=== PATIENT | female | born 1970 | race Caucasian/White ===

== ENCOUNTER 2024-09-19 15:22 | Outpatient (REF) | payer BC, MEDICARE, SELFPAY ==
[2024-09-19 16:55] LABS: MANUAL DIFF FLAG NO
[2024-09-19 16:58] LABS: Basophils Percent Auto 0.4 % (0-2); Eosinophils Absolute Auto 0.1 X10*3/uL (0.0-0.4); Eosinophils Percent Auto 1.1 % (0-4); Hematocrit 43.4 % (37.0-47.0); Hemoglobin 13.4 g/dl (12.0-16.0); Imm Gran Abs Auto 0.07 X10*3/uL (0.00-0.03); Imm Gran Pct Auto 0.7 % (0.0-0.4); Lymphocytes Absolute Auto 2.4 X10*3/uL (1.2-4.9); Lymphocytes Percent Auto 24.3 % (20-40); Mean Corpuscular HGB Conc 30.9 g/dl (31.0-35.0); Mean Corpuscular Hemoglobin 29.1 pg (27.0-33.0); Mean Corpuscular Volume 94.1 fL (80.0-98.0); Mean Platelet Volume 11.6 fL (9.4-12.3); Monocytes Absolute Auto 0.5 X10*3/uL (0.1-1.2); Monocytes Percent Auto 4.7 % (2-11); Neutrophils Absolute Auto 6.9 x10*3/uL (2.0-8.3); Neutrophils Percent Auto 68.8 % (45-73); Platelet Count 250 X10*3/uL (160-400); Red Blood Count 4.61 X10*6/uL (4.20-5.50); Red Cell Distribution Width 14.6 % (11.0-16.0)
[2024-09-19 17:08] LABS: Estimated Average Glucose 154 mg/dL; Hemoglobin A1C 182.2909 umol/L; Total Hemoglobin (HGBA1C) 3414.0755 umol/L
[2024-09-19 17:12] LABS: Alanine Aminotransferase 17 U/L (0-31); Albumin Level 3.8 g/dL (3.5-5.0); Alkaline Phosphatase 119 U/L (39-117); Anion Gap 14 (12-20); Aspartate Amino Transferase 26 U/L (5-31); Bilirubin Total 0.2 mg/dL (0.0-1.0); Blood Urea Nitrogen 20 mg/dL (9-16); Calcium 9.2 mg/dL (8.4-10.2); Carbon Dioxide 25 mmol/L (22-29); Chloride 109 mmol/L (96-108); Estimated Glomerular Filt Rate > 60; Glucose Random 159 mg/dL (60-115); Potassium 4.9 mmol/L (3.3-5.1); Sodium 143 mmol/L (135-145); Total Protein 7.3 g/dL (6.5-8.0)
--- OUTSIDE RECORDS SUMMARY | 2024-09-19 18:11 | XMS_ITS | Data Portability ---
Author Organization [facility] Address [address] [place] [address] Assessment Encounter Date Assessment Date Assessment LastModified by Organization Details LastModified Time 12/10/2023 12/10/2023 [id number] [place] [id number] (ACCOUNT DEVELOPMENT MANAGER) MDM MODERATE MUST MEET 2 OUT OF 3 ELEMENTS: PROBLEMS, DATA OR RISK ELEMENT 1: PROBLEMS ADDRESSED 1 OR MORE CHRONIC ILLNESS WITH EXACERBATION OR 2 OR MORE STABLE CHRONIC ILLNESSES OR 1 UNDIAGNOSED NEW PROBLEM OR 1 ACUTE ILLNESS W/SYMPTOMS OR 1 ACUTE COMPLICATED INJURY ELEMENT 2: DATA MUST MEET 1 OF 3 CATEGORIES CATEGORY 1: REVIEW OF PRIOR EXTERNAL NOTES, REVIEW OF RESULTS, ORDERING OF EACH TEST, ASSESSMENT REQUIRING INDEPENDENT HISTORIAN OR CATEGORY 2: INDEPENDENT INTERPRETATION OF TESTS BY ANOTHER PHYSICIAN OR SPECIALIST OR CATEGORY 3: DISCUSSION OF MGT OR TEST INTERPRETATION W/EXTERNAL PHYSICIAN OR SPECIALIST ELEMENT 3: RISK RISK OF COMPLICATIONS AND/OR MORBIDITY OR MORTALITY OF PATIENT MANAGEMENT PROVIDER MUST THOROUGHLY DOCUMENT EACH ELEMENT THAT IS COVERED Not available 12/10/2023 15:20:57 03/15/2024 03/15/2024 [id number] [place] [id number] (ACCOUNT DEVELOPMENT MANAGER) MDM MODERATE MUST MEET 2 OUT OF 3 ELEMENTS: PROBLEMS, DATA OR RISK ELEMENT 1: PROBLEMS ADDRESSED 1 OR MORE CHRONIC ILLNESS WITH EXACERBATION OR 2 OR MORE STABLE CHRONIC ILLNESSES OR 1 UNDIAGNOSED NEW PROBLEM OR 1 ACUTE ILLNESS W/SYMPTOMS OR 1 ACUTE COMPLICATED INJURY ELEMENT 2: DATA MUST MEET 1 OF 3 CATEGORIES CATEGORY 1: REVIEW OF PRIOR EXTERNAL NOTES, REVIEW OF RESULTS, ORDERING OF EACH TEST, ASSESSMENT REQUIRING INDEPENDENT HISTORIAN OR CATEGORY 2: INDEPENDENT INTERPRETATION OF TESTS BY ANOTHER PHYSICIAN OR SPECIALIST OR CATEGORY 3: DISCUSSION OF MGT OR TEST INTERPRETATION W/EXTERNAL PHYSICIAN OR SPECIALIST ELEMENT 3: RISK RISK OF COMPLICATIONS AND/OR MORBIDITY OR MORTALITY OF PATIENT MANAGEMENT PROVIDER MUST THOROUGHLY DOCUMENT EACH ELEMENT THAT IS COVERED Not available 03/15/2024 15:14:40 06/19/2024 06/19/2024 [email or web address] Not available 05/25 15:25:47 09/19/2024 09/19/2024 Patient presente d to office today for their Medicare Annual Wellness Visit. Education was provided on healthy nutrition, including a diet rich in fruits and vegetables, minimizing simple carbohydrates, salt, and saturated fats. Encouraged regular cardiovascular exercise such as walking at least 30 minutes daily, 5 times per week. Emphasized preventive health measures and educated pt on fall prevention and community-based lifestyle interventions to help reduce health risks and promote healthy living. [email or web address] Not available 09/14/2024 19:58:18 Plan of Treatment Reminders Order Date Submit Date Provider Last Modified By Organization Details Last Modified Time Details Appointments MEDICARE ANNUAL WELLNESS 2024 03:00P M DR JACOBS Not available Not available Not available FOLLOW UP 15 [address] JACOBS Not available Not available Not available Lab CBC w/ auto diff 2024 025 [facility], [address] [place] [address], [id number], 09/19/2024 15:17:35 CMP, serum or plasma 2024 025 [facility], [address] [place] [address], [id number], 09/19/2024 15:17:35 hemoglobi n A1c, QN, blood 2024 025 [facility], [address] [place] [address], [id number], 09/19/2024 15:17:35 culture, wound - active patient, please swab the area of concern, buttock, ulcer, celluliti s 2023 024 [facility], [address] [place] [address], [id number], 10/26/2023 15:42:55 Referral None recorded. Procedures None recorded. Surgeries None recorded. Imaging MAMMO, screening , digital, bilateral 2024 025 [facility], [address] [facility], [place], [address], 09/19/2024 15:45:46 bone density 2024 025 [facility], [address] [facility], [place], [address], 09/19/2024 15:45:46 MRI, knee, w/o contrast - needs total assistanc e pt is wheel chair bound 2023 024 [facility], [address] [facility], [facility] [address], [place], [address], 12/22/2023 08:56:56 Medication Orders fluticaso ne propionat e 110 mcg/actua tion HFA aerosol inhaler 2024 025 [id number], [address] [place] [address], [id number], 06/19/2024 15:32:45 pramipexo le 1 mg tablet 2024 025 [facility] #[id number], [address] [place] [address], [id number], 06/19/2024 15:30:09 clobetaso l 0.05 % topical cream 2024 025 [facility] #[id number], [address] [place] [address], [id number], 06/19/2024 15:29:01 Silvadene 1 % topical cream 2023 024 [facility] #84784, [address] [place] [address], [id number], 10/26/2023 15:27:07 suvorexan t 10 mg tablet 2023 024 [facility] #97714, [address] [place] [address] [place], [id number], 10/26/2023 15:44:[address] 20 mg tablet 2023 024 [id number], [address], [place], [id number], 10/26/2023 15:27:04 Patient TargetsNo targets recorded. Patient Instructions Encounter Date Encounter Id Patient Instructions Last Modified By Organization Details Last Modified Time 03/15/2024 [id number] pulse oximetry* Not available 03/15/2024 15:19:18 learning about asthma Not available 03/15/2024 15:19:19 hot flashes during menopause: care instructions Not available 03/15/2024 15:19:19 type 2 diabetes: care instructions Not available 03/15/2024 15:19:18 high blood pressure: care instructions Not available 03/15/2024 15:19:18 learning about high blood pressure Not available 03/15/2024 15:19:18 06/19/2024 [id number] pulse oximetry* VANITA Not available 06/19/2024 15:43:23 learning about asthma Not available 06/19/2024 15:28:54 09/19/2024 [id number] pulse oximetry* VANITA Not available 09/19/2024 16:36:19 advance care planning: care instructions Not available 09/19/2024 15:16:18 Discussed and explained advance directives such as standard forms to the {{patient caregiv er patient and caregiver}}. Face to face discussion lasted for a duration of ___ minutes. [email or web address] Not available 09/14/2024 19:58:18 Reason for Referral None Reported. Results Created Date Observation Date Name Description Value Unit Range Abnormal Flag Note LastModifiedBy Organization Detail LastModifiedTime 03/15/2003/15/2024 pulse oxime try* Result 90 Not Available [facility] [address] [facility] [address], [place], [address], 02/23/2024 15:19:49 06/19/19 25 06/19/2024 pulse oxime try* Result 86 Not Available [facility] [address] [facility] [place], [address], 06/16/2024 08:55:58 09/20/19 25 09/19/2024 pulse oxime try* Result 96 Not Available [facility] [address] [facility] [place], [address], 09/14/2024 20:01:22 Result Notes None recorded. Problems Name Problem SNOMED Code Status Onset Date Resolution Date Notes Provider Name and Address Organization Details Recorded Time Environm ental allergy 307010249 Active 2017 Not Available [facility] 3 22:18:52 Type 2 diabetes mellitus 21455518 Active 2017 Not Available [facility] 3 22:18:52 Low back pain 837750569 Active 2017 Not Available [facility] 3 22:18:52 History of bypass of stomach 254886912 Completed 201707/13/20182002 Merna Gonzalez NP, [address] [place], [address], [facility] 9 08:32:02 History of total hysterec norbert with bilatera l salpingo -oophore ctomy 155375796 Completed 201707/13/20182010 Merna Gonzalez NP, [address] [place], [address], [facility] 9 08:32:23 Bipolar disorder 74367492 Active 2017 Not Available [facility] 3 22:18:52 Iron deficien cy anemia 76975738 Active 2017 Not Available [facility] 3 22:18:53 Inflamma tion of sacroili ac joint 23364575 Active 2017 Not Available [facility] 3 22:18:52 Irritabl e bowel syndrome 77568618 Active 2017 Not Available [facility] 3 22:18:51 Obstruct juan pablo sleep apnea syndrome 84217457 Active 2017 uses CPAP Not Available [facility] 3 22:18:53 History of cholecys tectomy 960764596 Completed 201707/13/2018 Merna Gonzalez NP, [address] [place], [address], [facility] 9 08:32:20 History of hernia repair 30530521229 109 Completed 201707/13/2018 Merna Gonzalez NP, [address] [place], [address], [facility] 9 08:31:56 Bladder muscle dysfunct ion - overacti ve Active 2017 Not Available [facility] 3 22:18:52 Sedative overdose 353947528 Active 2017 2014 Not Available [facility] 3 22:18:52 Eating disorder 43925202 Active 2017 Not Available [facility] 3 22:18:52 Essentia l hyperten gume 99871239 Active 2017 Not Available [facility] 3 22:18:52 Atypical pneumoni a 519368709 Active 2017 Not Available [facility] 3 22:18:52 Insomnia 633940573 Active 2018 Not Available [facility] 3 22:18:52 History of pancreat itis 98674767143 107 Active 2018 Not Available [facility] 3 22:18:53 Diabetic peripher al neuropat hy 826050793 Active 2018 Not Available [facility] 3 22:18:52 Depressi ve disorder 86601101 Active 2020 Not Available [facility] 3 22:18:52 Abscess 060687220 Active 2021 Not Available [facility] 3 22:18:52 Tinea corporis 39531952 Active 2021 Not Available [facility] 3 22:18:53 Benign paroxysm al position al vertigo 517827972 Active 2021 Not Available [facility] 3 22:18:52 Benign paroxysm al position al vertigo 553224188 Active 2021 Not Available [facility] 3 22:18:52 Anxiety 67311676 Active 2021 Not Available [facility] 3 22:18:52 Transien t cerebral ischemia 415157476 Active 2021 Not Available [facility] 3 22:18:52 Menopaus e Active 2022 Not Available [facility] 3 22:18:52 Edema of lower extremit y 017150320 Active 2022 Not Available [facility] 3 22:18:51 Postoper ative wound infectio n 85682611 Active 2022 Not Available [facility] 3 22:18:52 Peripher al neuropat hy due to type 2 diabetes mellitus 84900945911 07 Active 2022 Not Available [facility] 3 22:18:52 Obesity 770560869 Active 2022 Not Available [facility] 3 22:18:52 Neurogen ic urinary bladder 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 Active 2022 Not Available [facility] 3 22:18:52 Candidia sis of vagina 14054496 Active 2022 Not Available [facility] 3 22:18:53 Asthma 438393825 Active 2022 Not Available [facility] 3 22:18:52 Dyspnea 351072437 Active 2023 GUI LALA [address] [place], [address], [facility] 4 09:32:52 Cough 33221653 Active 2023 Jovany Jacobs DO [address] [place], [address], [facility] 4 16:59:37 Allergic asthma 541536691 Active 2023 GUI LALA [address] [place], [address], [facility] 4 15:23:32 Cellulit is of buttock 19889243 Active 2023 GUI LALA [address] [place], [address], [facility] 4 15:25:22 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 GUI LALA [address] [place], [address], [facility] 4 15:29:17 Menopaus al flushing 303817541 Active 2023 GUI LALA [address] [place], [address], [facility] 4 15:38:47 Pressure injury of buttock 298939700 Active 2023 Jovany Jacobs DO [address] [place] [address], [address], [facility] 4 13:17:05 Dizzines s 504474648 Active 2023 Jovany Jacobs DO [address] [place] [address], [address], [facility] 4 13:32:19 Instabil ity of joint of left knee 46547719867 15921 Active 2023 Jovany Jacobs DO [address] [place] [address], [address], [facility] 4 15:24:51 Menopaus al syndrome 279815589 Active 2023 Jovany Jacobs DO [address] [place] [address], [address], [facility] 4 21:35:51 Nummular eczema 85464205 Active 2024 Jovany Calderon José Antonioroz, [address] [place] [address], [address], [facility] 5 15:28:07 Broken skin 885856523 Active 2024 Jovany Jacobs, [address] [place] [address], [address], [facility] 5 15:27:35 Notes:Some problems listed i n Documents: #[id number], #[id number], #[id number] could not be added to this patient's chart. Please review these documents and add these problems to the patient's chart manually as needed. Problem Notes None recorded. Procedures Surgical History Date Name Laterality Status Provider Name and Address Organization Details Recorded Time 012 colonoscopy completed Merna Gonzalez NP, S [address] [place] [address], [address], [facility] 07/13/2018 08:27:19 Total hysterectomy completed Merna Gonzalez NP, S [address] [place] [address], [address], [facility] 07/13/2018 08:26:32 Cholecystectomy completed Merna pabon NP, S [address] [place] [address], [address], [facility] 07/13/2018 08:26:42 section completed Merna ramos NP, S [address] [place] [address], [address], [facility] 07/13/2018 08:30:05 repair of umbilical hernia completed Merna Gonzalez NP, S [address] [place] [address], [address], [facility] 07/13/2018 08:30:23 Gastric bypass for obesity completed Merna Gonzalez NP, S [address] [place] [address], [address], [facility] 07/13/2018 08:30:37 panniculectomy completed Merna patel NP, [address] [place], [address], [facility] 07/13/2018 08:30:51 abdominoplasty completed Merna patel, ACCOUNT DEVELOPMENT MANAGER, [address] [place], [address], [facility] 07/13/2018 08:31:08 Imaging Results None recorded. Procedure Notes None recorded. Medical Equipment None Reported. Allergies Allergen ID Allergen Name Allergen Category Reaction Reaction Severity Criticality Documentation Date Start Date Code Code System Note Provider Name and Address Organization Details Recorded Time 230 cyclobenz aprine hydrochlo ride medicatio n Not available Not available Not available 07/26/2017 62524 [facility] 11:[facility]47 231 adhesive tape environme nt,medica tion Not available Not available Not available 07/26/2017 80173 UNK [facility] 8 11:01:51 2528 nystatin medicatio n vomiting Not available Not available 04/12/2018 7597 RxNorm Fanta Fang [facility] 8 12:01:43 Medications Name Sig Start Date Stop Date Status Note LastModified by Organization Details LastModified Time quetiapine 25 mg tablet 10/08 completed Not Available Not Available Not Available fluoxetine 40 mg capsule Take 1 capsule every day by oral route for 90 days. 08/28 completed Not Available Not Available Not Available amoxicillin 500 mg capsule TAKE 1 CAPSULE BY MOUTH THREE TIMES A DAY 07/19 completed Not Available Not Available Not Available pramipexole 1 mg tablet TAKE 1 TABLET BY MOUTH THREE TIMES DAILY active Not Available Not Available No t Available fluconazole 100 mg tablet Take 2 tablets every day by oral route for 1 day. 01/31 completed Not Available Not Available Not Available clotrimazol e 10 mg nancy TAKE 1 TABLET(S) 5 TIMES A DAY BY ORAL ROUTE FOR 10 DAYS. 07/19 completed Not Available Not Available Not Available buspirone 5 mg tablet Take one tablet twice a day. 04/07 completed Not Available Not Available Not Available metformin 500 mg tablet TAKE 1 TABLET TWICE A DAY 07/30 completed Not Available Not Available Not Available nystatin 100,000 unit/mL oral suspension Take 5 mL 4 times a day by oral route for 14 days. 04/12 completed Not Available Not Available Not Available prednisone 10 mg tablet take 5 tabs x 2 daystake 4 tabs x 2 daystake 3 tabs x 2 daystake 2 tabs x 2 daystake 1 tab x 2 days 01/31 completed Not Available Not Available Not Available doxycycline hyclate 100 mg capsule 06/25 completed Not Available Not Available Not Available paroxetine 10 mg tablet TAKE 1 TABLET BY MOUTH EVERY DAY 2024 active Not Available Not Available Not Avai lable cefaclor 500 mg capsule 10/08 completed Not Available Not Available Not Available oxybutynin chloride ER 10 mg tablet,exte nded release 24 hr Take 2 tablets daily. 04/12 completed Not Available Not Available Not Available azithromyci n 250 mg tablet TAKE 2 TABLETS (500 MG) BY ORAL ROUTE ONCE DAILY FOR 1 DAY THEN 1 TABLET (250 MG) BY ORAL ROUTE ONCE DAILY FOR 4 DAYS 01/31 completed Not Available Not Available Not Available ibuprofen 800 mg tablet TAKE ONE TABLET BY MOUTH THREE TIMES A DAY NEEDED 03/17 completed Not Available Not Available Not Available fluconazole 150 mg tablet TAKE 1 TABLET BY MOUTH NOW. MAY REPEAT IN 72 HOURS IF NEEDED active Not Available Not Available No t Available ondansetron HCl 8 mg tablet TAKE 1 TABLET BY MOUTH TWICE DAILY active Not Available Not Available No t Available fluconazole 200 mg tablet 10/08 completed Not Available Not Available Not Available clonazepam 0.5 mg tablet TAKE 2 TABLETS BY MOUTH THREE TIMES DAILY NEEDED FOR ANXIETY 03/29 completed Not Available Not Available Not Available clonazepam 1 mg tablet TAKE 1 TABLET BY MOUTH THREE TIMES DAILY NEEDED active Not Available Not Available No t Available clobetasol 0.05 % topical cream APPLY THIN LAYER TOPICALLY TO THE AFFECTED AREA TWICE DAILY active Not Available Not Available No t Available meclizine 12.5 mg tablet TAKE ONE TABLET BY MOUTH THREE TIMES A DAY NEEDED 03/17 completed Not Available Not Available Not Available metronidazo le 500 mg tablet Take 1 tablet twice a day by oral route with meals for 7 days. 07/19 completed Not Available Not Available Not Available estradiol 0.05 mg/24 hr semiweekly transdermal patch Apply 1 patch twice a week by transderm al route for 30 days. 2024 active Not Available Not Available Not Avai lable doxepin 10 mg capsule TAKE 1- 2 CAPSULES BY MOUTH EVERY NIGHT AT BEDTIME 10/25 completed Not Available Not Available Not Available valacyclovi r 500 mg tablet Take 1 tablet twice a day by oral route for 5 days. 11/07 completed Not Available Not Available Not Available ciprofloxac in 500 mg tablet 07/30 completed Not Available Not Available Not Available doxycycline monohydrate 100 mg tablet TAKE 1 TABLET BY MOUTH EVERY 12 HOURS FOR 3 DAYS 10/25 completed Not Available Not Available Not Available lithium carbonate ER 450 mg tablet,exte nded release TAKE 1 TABLET BY MOUTH TWICE A DAY 02/18 completed Not Available Not Available Not Available baclofen 20 mg tablet TAKE 1 TABLET BY MOUTH THREE TIMES DAILY active Not Available Not Available No t Available pramipexole 0.5 mg tablet TAKE 1 TABLET BY MOUTH THREE TIMES DAILY 06/19 completed Not Available Not Available Not Available lorazepam 0.5 mg tablet Take one tablet four times a day. 02/16 completed Not Available Not Available Not Available trazodone 100 mg tablet 10/08 completed Not Available Not Available Not Available meclizine 25 mg tablet TAKE 1 TABLET BY MOUTH THREE TIMES DAILY FOR 10 DAYS NEEDED active Not Available Not Available No t Available baclofen 10 mg tablet TAKE ONE TABLET BY MOUTH THREE TIMES A DAY 03/15 completed Not Available Not Available Not Available cephalexin 500 mg capsule TAKE 1 CAPSULE BY MOUTH EVERY 6 HOURS FOR 3 DAYS 12/09 completed Not Available Not Available Not Available metformin 1,000 mg tablet TAKE 1 TABLET BY MOUTH TWICE DAILY active Not Available Not Available No t Available buspirone 10 mg tablet Take one tablet twice a day. 10/08 completed Not Available Not Available Not Available zafirlukast 20 mg tablet TAKE 1 TABLET BY MOUTH TWICE DAILY active Not Available Not Available No t Available gabapentin 300 mg capsule TAKE 3 CAPSULES BY MOUTH THREE TIMES DAILY active Not Available Not Available No t Available montelukast 10 mg tablet TAKE 1 TABLET DAILY 08/28 completed Not Available Not Available Not Available codeine 10 mg-guaifene sin 100 mg/5 mL oral liquid TAKE 10 ML BY MOUTH FOUR TIMES DAILY FOR 7 DAYS NEEDED 12/07 completed Not Available Not Available Not Available hydrochloro thiazide 25 mg tablet TAKE 1 TABLET BY MOUTH EVERY DAY 02/18 completed Not Available Not Available Not Available furosemide 20 mg tablet TAKE ONE TABLET BY MOUTH EVERY DAY 08/28 completed Not Available Not Available Not Available mirtazapine 15 mg tablet Take 1 tablet every day by oral route for 30 days. 04/07 completed Not Available Not Available Not Available nystatin 100,000 unit/gram topical powder APPLY TO AFFECTED AREA(S) TOPICALLY TWO TIMES A DAY DIRECTED 08/28 completed Not Available Not Available Not Available lorazepam 1 mg tablet 1 tablet 3 times a day 07/30 completed Not Available Not Available Not Available diazepam 10 mg tablet Take 1 tablet twice a day by oral route as needed for 30 days. 01/02 completed Not Available Not Available Not Available estradiol 0.01% (0.1 mg/gram) vaginal cream 04/07 completed Not Available Not Available Not Available levofloxaci n 750 mg tablet 07/30 completed Not Available Not Available Not Available albuterol sulfate HFA 90 mcg/actuati on aerosol inhaler INHALE 1 PUFFS BY MOUTH EVERY 4- 6 HOURS NEEDED active Not Available Not Available No t Available SSD 1 % topical cream APPLY TOPICALLY A 1/16 INCH(1.5 MM) THICK LAYER TO ENTIRE AFFECTED AREA BY TOPICAL ROUTE2 TIMES PER DAY active Not Available Not Available No t Available piroxicam 20 mg capsule 10/08 completed Not Available Not Available Not Available fluoxetine 20 mg capsule TAKE ONE CAPSULE BY MOUTH EVERY DAY IN THE MORNING with 40mg capsule 08/28 completed Not Available Not Available Not Available doxycycline hyclate 100 mg tablet TAKE 1 TABLET BY MOUTH TWICE A DAY 06/25 completed Not Available Not Available Not Available ipratropium bromide 21 mcg (0.03 %) nasal spray 02/18 completed Not Available Not Available Not Available fluticasone propionate 110 mcg/actuati on HFA aerosol inhaler Inhale 1 puff twice a day by inhalatio n route for 30 days. 2024 active Not Available Not Available Not Avai lable spironolact one 50 mg tablet TAKE 1 TABLET BY MOUTH EVERY DAY active Not Available Not Available No t Available oxycodone 5 mg tablet TAKE 2 TABLETS BY MOUTH EVERY 4 HOURS NEEDED FOR PAIN 03/15 completed Not Available Not Available Not Available aripiprazol e 30 mg tablet TAKE 1 TABLET BY MOUTH EVERY DAY 2024 active Not Available Not Available Not Avai lable duloxetine 30 mg capsule,del ayed release TAKE 1 CAPSULE BY MOUTH EVERY DAY active Not Available Not Available No t Available BD Ultra-Fine Mini Pen Needle 31 gauge x 3/16 DIRECTED ONCE DAILY active Not Available Not Available No t Available Vesicare 10 mg tablet TAKE 1 TABLET BY MOUTH EVERY DAY 04/07 completed Not Available Not Available Not Available pregabalin 75 mg capsule 07/30 completed Not Available Not Available Not Available pregabalin 100 mg capsule Take by oral route. 03/17 completed Not Available Not Available Not Available chlorhexidi ne gluconate 0.12 % mouthwash USE 15 CC SWISH AND SPIT TWICE DAILY START IN 24 HRS 07/19 completed Not Available Not Available Not Available Vitamin C active Not Available Not Myra ilable Not Available folic acid take 1 tablet by mouth once a day 02/18 completed Not Available Not Available Not Available hydrocodone 7.5 mg-acetamin ophen 300 mg tablet 3 times per day 02/18 completed Not Available Not Available Not Available BD Ultra-Fine Short Pen Needle 31 gauge x 5/16 active Not Available Not Available Not Available Januvia 100 mg tablet 09/09 completed Not Available Not Available Not Available Lantus Solostar U-100 Insulin 100 unit/mL (3 mL) subcutaneou s pen active Not Available Not Available Not Available oxycodone 10 mg tablet TAKE 1 TABLET BY MOUTH THREE TIMES DAILY FOR 7 DAYS NEEDED FOR PAIN 03/15 completed Not Available Not Available Not Available OneTouch Delica Lancets 33 gauge USE TO TEST BLOOD SUGAR ONCE DAILY active Not Available Not Available No t Available Tradjenta 5 mg tablet TAKE 1 TABLET BY MOUTH EVERY DAY active Not Available Not Available No t Available OneTouch Verio test strips USE TO TEST ONCE A DAY active Not Available Not Available No t Available Eliquis 5 mg tablet TAKE 1 TABLET BY MOUTH TWICE DAILY 2024 active Not Available Not Available Not Avai lable Farxiga 10 mg tablet active Not Available Not Available No t Available Farxiga 5 mg tablet active Not Available Not Available No t Available Belsomra 10 mg tablet TAKE 1 TABLET BY MOUTH EVERY DAY AT BEDTIME active Not Available Not Available No t Available Toujeo SoloStar U-300 Insulin 300 unit/mL (1.5 mL) subcutaneou s pen 30 units sq in qhs 03/17 completed Not Available Not Available Not Available Tresiba FlexTouch U-200 insulin 200 unit/mL (3 mL) subcutaneou s pen ADMINISTE R 104 UNITS UNDER THE SKIN DAILY active Not Available Not Available No t Available Fiasp FlexTouch U-100 Insulin 100 unit/mL (3 mL) subcutaneou s pen active Not Available Not Available Not Available Qvar RediHaler 80 mcg/actuati on HFA breath activated aerosol INHALE 2 PUFFS BY MOUTH TWICE DAILY active Not Available Not Available No t Available Ozempic 0.25 mg or 0.5 mg (2 mg/1.5 mL) subcutaneou s pen injector 10/02 completed Not Available Not Available Not Available Eliquis DVT-PE Treatment 30-Day Starter 5 mg (74 tablets) in dose pack 03/26 completed Not Available Not Available Not Available Tylenol 325 mg capsule Take by oral route. active Not Available Not Available No t Available OneTouch Verio Reflect Meter TEST ONCE A DAY E11.65 active Not Available Not Available No t Available Lyllana 0.0375 mg/24 hr transdermal patch APPLY 1 PATCH TOPICALLY TO THE SKIN 2 TIMES A WEEK active Not Available Not Available No t Available Mounjaro 2.5 mg/0.5 mL subcutaneou s pen injector Inject 0.5 mL every week by subcutane ous route for 30 days. 2022 active Not Available Not Available Not Avai labcal Dexcom G7 Sensor device USE DIRECTED TO MONITOR BLOOD SUGAR active Not Available Not Available No t Available Veozah 45 mg tablet TAKE 1 TABLET BY MOUTH EVERY DAY active Not Available Not Available No t Available Vitals Date Recorded Heart rate Oxygen saturation Oxygen saturation in Arterial blood by Pulse oximetry Systolic blood pressure Diastolic blood pressure Provider Name and Address Organization Details Last Updated DateTime 4 113 /min 99 % 99 % 130 mm[Hg] 72 mm[Hg] Angela Talbert [facility] 4 15:06:41 Date Recorded Heart rate Oxygen saturation Oxygen saturation in Arterial blood by Pulse oximetry Systolic blood pressure Diastolic blood pressure Provider Name and Address Organization Details Last Updated DateTime 4 113 /min 91 % 91 % 132 mm[Hg] 80 mm[Hg] Bhakti Baptiste [facility] 4 15:06:28 Date Recorded Body height Body mass index (BMI) Body weight Heart rate Oxygen saturation Oxygen saturation in Arterial blood by Pulse oximetry Systolic blood pressure Diastolic blood pressure Provider Name and Address Organization Details Last Updated DateTime 4 152.4 cm 48.8 kg/m2 828907. 09 g 116 /min 90 % 90 % 122 mm[Hg] 76 mm[Hg] Clifford Morales [facility] 4 15:06:26 Date Recorded Body height Heart rate Oxygen saturation Oxygen saturation in Arterial blood by Pulse oximetry Systolic blood pressure Diastolic blood pressure Provider Name and Address Organization Details Last Updated DateTime 5 152.4 cm 113 /min 86 % 86 % 100 mm[Hg] 64 mm[Hg] Angela Talbert [facility] 5 15:07:42 Date Recorded Body height Systolic blood pressure Diastolic blood pressure Provider Name and Address Organization Details Last Updated DateTime 09/19/2024 152.4 cm 120 mm[Hg] 68 mm[Hg] Angela Talbert [facility] 09/19/2024 15:01:51 Social History Question Answer Notes LastModified by Organizat ion Details LastModified Time Tobacco Smoking Status Former Smoker Angela beckman [facility] 12/04/2022 13:59:48 What Was The Date Of Your Most Recent Tobacco Screening? 09/19/2024 [email or web address] Information not available 09/19/2024 How Much Tobacco Do You Smoke? 1 PPD [email or web address] Information not available 07/19/2020 Do You Or Have You Ever Used Any Other Forms Of Tobacco Or Nicotine? No [email or web address] Information not available 10/26/2023 Sex: Unknown Functional Status None recorded. Mental Status None recorded. Family History Relationship Description Onset Age of this Age Resolved Age Notes LastModified by Organization Details LastModified Time Mother Coronary arterioscler osis thn, NIDDM sol Not available 07/13/2018 08:29:14 Medical History No medical history recorded. Gynecological HistoryNo gynecological history recorded. Obstetrics History GPAL:G 0 P 0 0 0 0 Past Encounters Encounter ID Performer Location Encounter Start Date Encounter Closed Date Diagnosis/Indication Diagnosis SNOMED-CT Code Diagnosis ICD10 Code Diagnosis Note [id number] Jovany Jacobs [facility] Internal Medicine [address] [facility] [address], [place] [address] 10/08/2017 16:10:25 10/11/2017 08:40:35 Essential hypertension 04063774 I10 bp was stable warned of untreated sleep apnea Type 2 za betes mellitus 52089886 E11.9 hasnt been getting the a1c test Obstructiv e sleep apnea syndrome 61023069 G47.33 not wearing cpap warned of sleep deprivatio n and medical conditons is falling asleep in car told her should not be driving if she is [id number] August Igor [facility] Internal Medicine [address] [facility] [address],[place] [address] 11/15/2017 14:42:46 11/15/2017 16:10:49 Fever 607617339 R50.9 possibly pneumonia, but with numerous sx, not suggestive of pna Fatigue 77889076 R53.83 acute Asthma 892870612 J45.90 9 feels worse Chest pain 03482466 R07. 9 ekg reassuring Pneumonia 722265151 J18. 9 nonspecifi c findings, treat empiricall y until more informatio n from labs/cxr pt reports she has taken zpack in past without issue O2 sat is reassuring [id number] Jovany Jacobs [facility] Internal Medicine [address] [facility] [address],[place] [address] 01/21/2018 15:50:02 01/21/2018 17:01:06 Type 2 diabetes mellitus 08978480 E11.9 hasnt been getting the a1c test Essential hypertension 63594299 I10 bp was stable warned of untreated sleep apnea Diabetes mellitus 370770 09 E11.9 [id number] [facility] [place] Internal Medicine [address] [place] [address],[place] [address] 01/31/2018 16:13:18 02/01/2018 08:02:06 Sensory neuropathy 05149257 G60.8 have recommende d she take ibuprofen 800 mg 2-3 times per day and if no improvemen t to please call her spinal specialist dr. agustin in 2-3 days. have advised her not to wait too long to call as neuropathy can be permanent if allowed to persist unaddresse d. given the sudden onset of sx it is unlikely solely due to diabetes and rather a peripheral nerve irritation or possibly a spinal disc herniation , though in absence of any injury it is unclear the mechanism that would have triggered this. Type 2 za betes mellitus 72001441 E11.65 neuropathy unlikely solely related to dm. labs were ordered by MB, reassured pt that they will be evaluated once recieved, though they were not ready as of today Chronic low back pain 27 1717037 M54.5 this seems the most likely explanatio n for abrupt onset of foot neuropathy , she is aware to contact her spinal specialist for evaluation of this if not improved in 2-3 days [id number] [facility] [place] Internal Medicine [address] [place] [address],[place] [address] 02/16/2018 15:47:18 02/16/2018 16:33:17 Candidiasis of mouth 50584775 B37.0 Asthma 912756963 J45.90 9 has been quiet on steroid based inhaler [id number] [facility] [place] Internal Medicine [address] [facility],[place] [address] 04/12/2018 11:38:35 04/12/2018 14:14:14 Asthma 562322110 J45.909 has been quiet on steroid based inhaler Sensory neuropathy 63576 005 G60.8 continues to have sx. suggest discussing with dr. agustin, if he doesn't believe its related to the back we will order an emg/nct to assess the source of her neuropathy . Type 2 za betes mellitus 10828592 E11.65 could be contributo ry recommend more strict diet and blood sugar monitoring daily Chronic low back pain 27 4993089 M54.5 this seems the most likely explanatio n for abrupt onset of foot neuropathy , she is aware to contact her spinal specialist for evaluation of this if not improved in 2-3 days Candidiasis of mouth 797 01033 B37.0 unable to tolerate nystatin will try troches diflucan has several interactio ns, will try to avoid for now [id number] August CLYDE Costa [facility] Internal Medicine [address] [facility],[place] [address] 05/09/2018 13:22:12 05/09/2018 14:17:29 Sensory neuropathy 02558878 G60.8 continues to have sx, discussed with her spinal specialist who has yet to address it Weakness of hand 3989464 06 M62.81 b/l hands. intermitte nt, with intermitte nt shakes/get mors need to see neuro ? parkinson' s Ataxia 78491123 R27.0 weakness of legs, legs give out intermitte ntly ? disc related, unlikely cauda equina given lack of saddle anesthesia , radiculopa thy and intermitte nt nature again will consult with neuro [id number] Jovany Jacobs, [facility] Internal Medicine [address] [facility],[place] [address] 06/01/2018 15:22:06 06/01/2018 19:20:09 Essential hypertension 26136008 I10 bp was stable warned of untreated sleep apnea Inflammati on of sacroiliac joint 98504656 M46.1 still very uncomforta ble gets epidurals inj and not too helpful Type 2 za betes mellitus 22711204 E11.9 a1c 7.2 and is doing well has lost almost 20lbs Insomnia 537230919 G47.0 0 trazodone is not helping will need to figure out what we can use which does not interfere with lithium Bipolar disorder 4212103 4 F31.9 reviewed lithium levels [id number] Merna Gonzalez NP, S [facility] Internal Medicine [address] [facility],[place] [address] 07/13/2018 09:12:06 07/13/2018 10:33:07 Type 2 diabetes mellitus 13853994 E11.65 Atrophic vaginitis 27132 000 N95.2 Vaginal ulcer 01736580 N 76.5 Candidiasis of mouth 797 77161 B37.0 Essential hypertension 94158532 I10 stable [id number] Merna Gonzalez NP, S [facility] Internal Medicine [address] [facility] [address],[place] [address] 08/16/2018 11:27:29 08/16/2018 12:23:33 Essential hypertension 64294372 I10 stable Type 2 za betes mellitus 43472824 E11.65 check home BS's at least daily Pancreatitis 78655481 K8 5.90 resolved [id number] Jovany Jacobs DO [facility] Internal Medicine [address] [facility],[place] [address] 09/13/2018 13:22:21 09/13/2018 14:17:46 Essential hypertension 00003299 I10 bp was stable warned of untreated sleep apnea Type 2 za betes mellitus 25034173 E11.9 has not gotten any lab for this visit will order lab now History of pancreatitis 4842764308 9107 Z87.19 had bout of mild acute pancreatit is not a drinker no gb subacute onset unknown etiology [id number] Jovany Jacobs DO [facility] Internal Medicine [address] [facility],[place] [address] 11/07/2018 10:28:10 11/07/2018 11:45:31 Type 2 diabetes mellitus 76748540 E11.9 a1c is reported to be elevated at 8 despite the wgt loss Essential hypertension 18995117 I10 bp was stable warned of untreated sleep apnea Iron defic iency anemia 94783119 D50.9 believe this is all unresolved as she still behaves like iron def ( iice cubes , restless legs ) will need eval by dr castano and will need new set of lab for her eval Restless legs 49519819 G 25.81 [id number] Jovany Jacobs DO [facility] Internal Medicine [address] [facility] [address], [place] [address] 12/30/2018 15:16:45 12/30/2018 16:16:23 Type 2 diabetes mellitus 90385890 E11.9 a1c is 7.6 and is fairly stable Essential hypertension 00161317 I10 bp was stable warned of untreated sleep apnea Iron defic iency anemia 35772975 D50.9 believe this is all unresolved as she still behaves like iron def ( iice cubes , restless legs ) will need eval by dr castano and will need new set of lab for her eval will need continued iv iron infusions Obstructiv e sleep apnea syndrome 05276537 G47.33 not wearing cpap warned of sleep deprivatio n and medical conditons is falling asleep in car told her should not be driving if she is [id number] Jovany Jacobs [facility] Internal Medicine [address] [facility] [address], [place] [address] 02/20/2019 10:56:16 02/20/2019 14:22:41 Type 2 diabetes mellitus 19213210 E11.9 a1c was 7.6 and is fairly stable but will chk today and find out Essential hypertension 00564452 I10 bp was stable warned of untreated sleep apnea Diabetic p eripheral neuropathy 103227977 E11.40 will cont to tell her to stop drinking sugar drinks and that it only makes it worse Edema of lower leg 45760 7004 R60.0 worrisome as she has had DVT in the past will order doppler jane [id number] Jovany Jacobs [facility] Internal Medicine [address] [facility] [address],[place] [employer] [address] 04/07/2019 15:52:23 04/07/2019 16:40:27 Type 2 diabetes mellitus 38115299 E11.9 a1c was 7.6 and is fairly stable but will chk today and find out Essential hypertension 40061147 I10 bp was stable warned of untreated sleep apnea Diabetic p eripheral neuropathy 554025705 E11.40 will cont to tell her to stop drinking sugar drinks and that it only makes it worse luckily she has a a1c of 7.3 History of pancreatitis 2012178282 9107 Z87.19 had bout of mild acute pancreatit is recently with pain in her mid epigast region this slowly went away stopped eating and drank fluids not a drinker no gb subacute onset unknown etiology [id number] August CLYDE Costa [facility] Internal Medicine [address] [facility] [address],[place] [address] 05/08/2019 11:49:45 05/08/2019 12:15:12 Colitis 64529054 K52.9 needs to have gi f/u and possible colonoscop y/upper endoscopy advised to fu or go to ER if sx worsen Diverticul itis of colon 086761190 K57.32 was treated with abx 3 weeks ago for this. one of the abx caused vomiting, but she is tolerating her abx regimen at this time Type 2 za betes mellitus 07765809 E11.65 [id number] Jovany Jacobs [facility] Internal Medicine [address] [facility], [place] [address] 07/31/2019 15:38:46 07/31/2019 16:17:55 Type 2 diabetes mellitus 42584949 E11.9 a1c is 7.8 and was 7.6 and is fairly stable but will need to be more careful Essential hypertension 67998543 I10 bp was stable warned of untreated sleep apnea Diabetic p eripheral neuropathy 791349633 E11.40 cont to tell her to stop drinking sugar drinks !!!!!!!!!! ! still luckily she has a a1c of 7.8 Obstructiv e sleep apnea syndrome 04011918 G47.33 not wearing cpap and GAIN WE warned of sleep deprivatio n and medical conditons is falling asleep in car told her should not be driving. Bipolar disorder 1933283 4 F31.9 reviewed lithium levels [id number] Jovany Jacobs [facility] Internal Medicine [address] [facility],[place] [address] 09/15/2019 13:33:38 09/15/2019 15:27:00 Exposure to communicable disease 652016198 Z20.9 metronidaz ole 500 [id number] Jovany Jacobs [facility] Internal Medicine [address] [facility], [place] [address] 10/31/2019 15:50:20 10/31/2019 16:45:52 Type 2 diabetes mellitus 11334759 E11.9 a1c is pending last test was 7.8 and was 7.6 and is fairly stable but will need to be more careful Iron defic iency anemia 88158837 D50.9 believe this is all unresolved as she still behaves like iron def ( iice cubes , restless legs ) will need eval by dr casatno and will need new set of lab for her eval will need continued iv iron infusions Diabetic p eripheral neuropathy 967197798 E11.40 cont to tell her to stop drinking sugar drinks !!!!!!!!!! ! still luckily she has a a1c of 7.8 keep walking [id number] GUI LALA [facility] Internal Medicine [address] [facility] [address],[place] [address] 02/14/2020 15:26:09 02/14/2020 18:08:30 [id number] GUI LALA [facility] Internal Medicine [address] [facility] [address],[place] [address] 02/14/2020 15:36:52 02/14/2020 16:14:43 Type 2 diabetes mellitus 36052843 E11.9 A1c is stable will hold increasing metformin Essential hypertension 37345135 I10 BP elevated patient is in pain will monitor may need to adjust medication [id number] Jovany Jacobs DO [facility] Internal Medicine [address] [facility] [address],[place] [address] 07/19/2020 15:55:20 07/19/2020 16:43:43 Essential hypertension 72790563 I10 bp was stable warned of untreated sleep apnea Type 2 za betes mellitus 91113909 E11.9 aa1c is elevated to 9 from 7 state s is 10 lbs more Bipolar disorder 8421392 4 F31.9 reviewed lithium levels [id number] Jovany Jacobs DO [facility] Internal Medicine [address] [facility] [address],[place] [address] 02/18/2021 08:12:00 02/18/2021 10:55:46 Diabetic peripheral neuropathy 133990322 E11.40 still very severe and having a great deal of pain in her feet unable to walk at thispoint because of itwe will increase her gabapentin to 600mg tid total Inflammati on of sacroiliac joint 87441781 M46.1 still very uncomforta ble gets epidurals inj and not too helpful Edema of l ower extremity 259988249 R60.0 has 20 mg furosemide will use the med daily for a week to see if that helps Nausea 801141244 R11.0 [id number] Jovany Jacobs DO [facility] Medicine [address] [facility],[place] [address] 03/26/2021 08:14:19 03/26/2021 15:51:03 Deep venous thrombosis of lower extremity 896407383 I82.409 we will cont the eliquis for total 6 monthspt is now back doing her PT exercises and formal visits Fracture o f shaft of femur 50000376 S72.302E she will cont with the PT and currently will be temi g to the surgeon at the end of aprilof note is that the patient would absolutely benefit from a hospital bed preferably with trapeze as she is not progressin g at this time and she needs to have this now .. Urinary incontinence 165 556210 R32 [id number] Jovany Jacobs DO [facility] Internal Medicine [address] [facility],[place] [address] 06/25/2021 08:31:43 06/30/2021 09:41:52 Diabetic peripheral neuropathy 149881891 E11.40 still very severe and having a great deal of pain in her feet unable to walk at this point because of itwe will increase her gabapentin to 600mg tid total Inflammati on of sacroiliac joint 01075039 M46.1 still very uncomforta ble gets epidurals inj and not too helpful Deep venou s thrombosis of lower extremity 896653990 I82.409 we will cont the eliquis as she is not walking Bipolar disorder 5856433 4 F31.9 she has been stable Type 2 za betes mellitus 54554718 E11.9 she has a need to get her lab done Essential hypertension 30958276 I10 bp was stable warned of untreated sleep apnea 70566 GUI LALA [facility] Internal Medicine [address] [facility],[place] [address] 10/10/2021 09:51:33 10/14/2021 12:07:19 Abscess 756137593 L02.91 resolved Type 2 za betes mellitus 97353714 E11.9 discussed when and how much insulin to takewill let MB know [id number] DO [facility] [address] [facility] [address],[place] [address] 11/11/2021 08:23:52 11/14/2021 08:44:35 Type 2 diabetes mellitus 83961332 E11.9 she has a need to get her lab done Essential hypertension 42761909 I10 bp was stable warned her again of untreated sleep apnea last bp was around 118 / 70 Tinea corporis 61117834 B35.4 13877 GUI LALA [facility] Internal Medicine [address] [facility] [address],[place] [address] 11/25/2021 09:17:00 11/25/2021 10:48:52 Benign paroxysmal positional vertigo 247183875 H81.12 will fu with update on wednesday 10026 GUI LALA [facility] Internal Medicine [address] [facility] [address],[place] [address] 01/02/2022 10:42:42 01/05/2022 11:09:44 Anxiety 05146555 F41.1 will f/u with medication adjustment will increase prozac to 40 mg and change Klonapin to 1 mg TID Transient cerebral ischemia 192362928 G45.8 will set up with an open MRIwill determine if Somers has a sharon lift 13396 GUI LALA [facility] Internal Medicine [address] [facility] [address],[place] [address] 06/05/2022 11:22:55 06/09/2022 08:49:37 Menopause 699461419 N95.1 will start paxil for the menopause Diabetic p eripheral neuropathy 389759051 E11.41 will change out to lyrica from gabapentin Type 2 za betes mellitus 45176924 E11.9 discussed when and how much insulin to takewill let MB know Anxiety 52462555 F41.1 needs refill Edema of l ower extremity 760034026 R60.0 needs refill [id number] Jovany Jacobs DO [facility] Internal Medicine [address] [facility] [address],[place] [address] 06/15/2022 14:20:54 06/15/2022 15:34:02 Transient cerebral ischemia 780496171 G45.8 seems to be stable Type 2 za betes mellitus 90673029 E11.42 she has a need to get her lab done Essential hypertension 37492603 I10 bp was stable warned her again of untreated sleep apnea last bp was around 118 / 70 Inflammati on of sacroiliac joint 67360940 M46.1 still very uncomforta ble gets epidurals inj and not too helpful Bipolar disorder 6273074 4 F31.9 she has been stable Deep venou s thrombosis of lower extremity 024358039 I82.409 we will cont the eliquis as she is not walking Postoperat juan pablo wound infection 17998846 T81.41XS area has healed and is no longer drainingwi ll be cont to have her monitor and [place] [id number] Jovany Jacobs, [facility] Internal Medicine [address] [facility],[place] [address] 08/28/2022 13:58:20 08/28/2022 15:22:03 Type 2 diabetes mellitus 91792319 E11.42 lab [id number] is still very high at 10 will try to get her on ozempic and send her to dr Jeffers Edema of l ower extremity 806831742 R60.0 has 20 mg furosemide and this has not helped so stopped Peripheral neuropathy due to type 2 diabetes mellitus 4158839574 107 E11.42 about the same [id number] Jovany Jacobs [facility] Internal Medicine [address] [facility],[place] [address] 12/04/2022 13:51:36 12/04/2022 14:47:49 Peripheral neuropathy due to type 2 diabetes mellitus 6795635118 107 E11.42 about the same Type 2 za betes mellitus 19664288 E11.42 lab not done not sure what sugars are [id number] is still very high at 10 will try to get her on ozempic and send her to dr Jeffers [id number] Jovany Jacobs [facility] Internal Medicine [address] [facility],[place] [address] 03/17/2023 14:38:31 03/17/2023 16:33:23 Depressive disorder 60293446 F32.A her e for rechk and is about the same Anxiety [id number] F41.1 will f/u with medication adjustment will increase prozac to 40 mg and change Klonapin to 1 mg TID Asthma 526368633 J45.90 9 seems stable Bipolar disorder 5375086 4 F31.9 she has been stable aripiprazo le Essential hypertension 78722375 I10 bp was stable warned her again of untreated sleep apnea last bp was around 118 / 70 Type 2 za betes mellitus 75014047 E11.42 again , lab not done not sure what sugars are oavpyhv8p was still very high at 10 will try to get her on mounjaro if ok with dr jeffers [id number] Jovany Jacobs DO [facility] Internal Medicine [address] [facility] [address] [address] 07/14/2023 08:53:38 07/16/2023 08:59:16 Type 2 diabetes mellitus 02002256 E11.40 again , lab not done not sure what sugars are ubzqby8s was doing better at 7.8 Inflammati on of sacroiliac joint 33279599 M46.1 still very uncomforta ble gets epidurals inj and not too helpful Bipolar disorder 8806517 4 F31.9 she has been stable aripiprazo le Deep venou s thrombosis of lower extremity 801804339 I82.409 we will cont the eliquis as she is not walking Essential hypertension 78763975 I10 bp was stable warned her again of untreated sleep apnea last bp was around 118 / 70 Asthma 182488201 J45.90 9 seems stable Neurogenic urinary bladder 334320614 N31.9 she still has an issue with bladder has no warning and she is having incontinen ce [id number] GUI LALA [facility] Internal Medicine [address] [facility] [address] [address] 10/26/2023 14:52:41 10/26/2023 16:41:22 Allergic asthma 134773494 J45.20 will set up with alt to the montelukas t for better allergy asthma control for her cough Cellulitis of buttock 44 251832 L03.317 will set up with alternrufusv kelly for Ruptured a bdominal aortic aneurysm 22567985 I71.33 the patient will be following up with the surgeon on Wednesday; will see Dr. Morataya Menopausal flushing 1983 78880 N95.1 agreed to f/u ruth as an alternativ e to therapy for the paxilgiven free sample in office Insomnia 368543944 G47.0 9 will set up for a PA [id number] Jovany Jacobs [facility] Internal Medicine [address] [facility] [address] [address] 12/10/2023 14:47:34 12/10/2023 15:39:44 Depression screening 338074874 Z13.31 SCREENING NEGATIVE Essential hypertension 81805203 I10 bp was stable warned her again of untreated sleep apnea last bp was around 118 / 70 Type 2 za betes mellitus 54044356 E11.40 again , lab not done not sure what sugars are doing will order a1ca1c was doing better at 7.8 Instabilit y of joint of left knee [id number] 135482 M25.362 severe pain and joint instabilit y [id number] Jovany Jacobs [facility] Internal Medicine [address] [facility] [address] 7 03/15/2024 14:49:29 03/15/2024 15:57:02 Asthma 367257006 J45.909 seems stable Type 2 za betes mellitus 66571939 E11.40 a1c is 10.6 will be seeing the endo diabetes spec next weekneeds a sliding scale and needs to have the dexcom Peripheral neuropathy due to type 2 diabetes mellitus 0369771915 107 E11.42 about the same Menopausal flushing 1983 83518 N95.1 Essential hypertension 48118696 I10 bp was stable warned her again of untreated sleep apnea last bp was around 118 / 70 [id number] Jovany Jacobs [facility] Internal Medicine [address] [facility] [address] [address] 06/19/2024 14:56:43 06/19/2024 15:37:21 Allergic asthma 641289942 J45.20 as below Asthma 537613845 J45.90 9 seems stablebit still smokes Nummular eczema 39715920 L30.0 Diabetic p eripheral neuropathy 426433418 E11.41 [id number] Jovany Jacobs DO [facility] Internal Medicine [address] [facility] [address],[place] [address] 09/19/2024 14:47:30 09/19/2024 15:45:46 Screening for cardiovascular system disease 001962083 Z13.6 will need further lab Screening for malignant neoplasm of colon 071813716 Z12.11 currently not abole to do colonoscop y Screening for osteoporosis 387681413 Z13.820 Screening mammography 24 312124 Z12.31 Asthma 296274761 J45.90 9 seems stablebut still smokes Essential hypertension 90374034 I10 bp was stable warned her again of untreated sleep apnea last bp was around 118 / 70 Type 2 za betes mellitus 23839723 E11.40 a1c is 10.6 will be seeing the endo diabetes spec next weekneeds a sliding scale and needs to have the dexcom General ex amination of patient 100715118 Z00.01 still trying to walk able to stand better now unwilling to give upwill need lab Broken skin 593872369 R2 3.8 Health Concerns Section Related Observation LastModified by Organization Detai ls LastModified Time None Recorded Concern Status LastModified by Organization Details LastModified Time None Recorded Advance Directives Directive None Recorded Payers Encounter Date Sequence Insurance Name Policy Number Policy [place] Covered Member ID [place] Member ID Guarantor Name 10/26/2023 1 [place] [id number] [place] A Hasmukh [id number] [place] Has[place]kh 10/26/2023 2 [place] [employer] H[place]ukh [id number] [place] 12/10/2023 1 [place] [id number] [place] Has[place] [id number] [place] 12/10/2023 2 [place] Hasmukh [id number] [place] 03/15/2024 1 [place] [id number] [place] Has[place] [id number] [place] 03/15/2024 2 [place] Hasmukh [id number] [place] Harley Hasmukh 06/19/2024 1 [place] [id number] [place] Noe [id number] [place] 06/19/2024 2 [place] [facility] [place] Noe [id number] [place] Har[place] Hasmukh 09/19/2024 1 [place] [id number] [place] [id number] [place] Harley Hasmukh 09/19/2024 2 [place] [facility] [place] [id number] [place] No[place] Notes Date Note Type Note Provider Name and Address Organization Details Recorded Time 4 text/htm l hospital f/u the patient reports that she was seen emergency for a ruptured AA due to severe coughing fitthe patient incision is healing really wellthe patient still has some residual bruising from the areastill having abdominal pain, surgeon on Wednesday for a f/u the recheck the area the patient and I discussed the infection of her buttockwill send note to [facility] for swab of the areastarted after yeast infection due to abx post op will give [facility] silvadene to try and use for better treatment option until swab results come in switched out medication for insomnia given multiple failed medicationsdoxepin does not help at all added zafirlukast for her to use with the zyrtec for the allergic asthma/allergic cough given free sample of veozah for the hot flashes, safe to use non hormonal treatment since paxil isn't helping GUI LALA [address] [place] [address], [phone], [facility] 10/26/2023 15:50:48 4 text/htm l Care Management - DiabetesReported bypatient.Self Care:seeing eye doctor yearly for dilated eye exam; checking feet regularly; normal range of home blood sugars (in the low 100s); no side effects from medications Associated Symptoms:symptoms are usually well controlled; no fatigue; no dizziness; no excessive sweating; no headaches; no confusion; no increased thirst; no increased appetite; no increased urination; no blurred vision; no numbness of feet; no calluses on feet here for rechk and has been slowly having sl improvementbut the left knee has been hurting her and is feeling this is impeding her in recovery Jovany Jacobs, [address] [place], [address], [facility] 12/10/2023 15:26:48 4 text/htm l Care Management - DiabetesReported bypatient.Self Care:seeing eye doctor yearly for dilated eye exam; checking feet regularly; normal range of home blood sugars (in the low 100s); no side effects from medications Associated Symptoms:symptoms are usually well controlled; no fatigue; no dizziness; no excessive sweating; no headaches; no confusion; no increased thirst; no increased appetite; no increased urination; no blurred vision; no numbness of feet; no calluses on feet her for rechkand is walking now with PT doing great and seeing her walk in video Jovany JacobsDO [address] [place] [address], [phone], [facility] 03/15/2024 15:20:42 5 text/htm l is walking bettr uses a walkerbreathing is not goodis now off the pain meds had stopped after a 4 day taperunderwent 3 weeks of withdrawal Jovany JacobsDO [address] [place], [address], [facility] 06/19/2024 15:33:26 5 text/htm l Care Management - DiabetesReported bypatient.Self Care:seeing eye doctor yearly for dilated eye exam; checking feet regularly; normal range of home blood sugars (in the low 100s); no side effects from medications Associated Symptoms:symptoms are usually well controlled; no fatigue; no dizziness; no excessive sweating; no headaches; no confusion; no increased thirst; no increased appetite; no increased urination; no blurred vision; no numbness of feet; no calluses on feetCare Management - HypertensionReported bypatient.Self Care:not under emotional stress Severity:symptoms are improving; does not interfere with daily activities Associated Symptoms:no dizziness; no lightheadedness; no chest pain; no shortness of breath; no palpitations; no edema; no calf muscle cramps; no blurred vision; no confusion; no headaches; no fatigueMedicare Annual Wellness VisitReported bypatient.Diet and Nutrition:healthy diet Fracture Risk:no history of fractures; no recent explained fracture; no sudden unexplained fractures; no previous musculoskeletal injuries Physical Activity:exercises on a regular basis; recent increase in physical activity; good physical condition Depression Risk:never feels sad, empty, or tearful; no loss of interest in activities; no significant changes in weight; no sleep disturbances or insomnia; no agitation; no loss of energy; no feelings of worthlessness or guilt; no thoughts of suicide; no history of depression; no history of mood disorders Orientation:no disorientation to time; no disorientation to date; no disorientation to place Concentration and Memory:no decreased concentrating ability; no memory lapses or loss; does not forget words Speech/Motor difficulties:no speech difficulties; no difficulty expressing formulated concepts; no difficulty with fine manipulative tasks; no difficulty writing/copying; no slowed reaction time; does not knock things over when trying to pick them up Hearing:no loss of hearing Vision:no vision problems Activities of Daily Living:able to bathe with limited or no assistance; able to contol urination and bowels; able to dress with limited or no assistance; able to feed self with limited or no assistance; able to get out of chair or bed with limited or no assistance; able to groom with limited or no assistance; able to toilet with limited or no assistance Instrumental Activities of Daily Living:able to do house work with limited or no assistance; able to grocery shop with limited or no assistance; able to manage medications with limited or no assistance; able to manage money with limited or no assistance; able to prepare meals with limited or no assistance; able to use the phone with limited or no assistance Falls Risk Assessment:no frequent falls while walking; no fall in the past year; no fall since last visit; no dizziness/vertigo Home Safety:no unsafe jack hazzards; no unsafe stairs; no unsafe gas appliances; working smoke/CO detectors; wears protective head gear for biking/high velocity; use of seatbelts; practicing 'safer sex'; no vision or hearing loss while driving; no fire arms; has hand bars in the bathroom/shower; good lighting in the home medicare wllness check up reviewed lab in detailreviewed meds in detail Jovany Jacobs, DO [address] [facility], [place], [address], [facility] 09/19/2024 15:36:54 OBGyn Episode No OBEpisode recorded.
--- OUTSIDE RECORDS SUMMARY | 2024-09-19 18:11 | XMS_ITS ---
Author Organization [facility] on Care Team Providers Care Ventilating Expert Name Role Phone Carlotta Mckeon Unavailable Unavailable Cinthya Jarrell Unavailable Unavailable Zahra, Sammy Unavailable Unavailable Kristy Gonzales Unavailable Unavailable Katie Younger Unavailable Unavailable Melinda Muñiz Unavailable Unavailable Starla Cloud Unavailable Unavailable Allergies and adverse reactions Code CodeSystem Substance Reaction Severity StartDate Concern Status Tape Unknown 12/19/2020 active Care Team Name Role Address Phone Organization Dates Sammy Sweeney PCP [address] [place] [address], [phone], [place] (Office[place] : [facility] 12/19/2020 - 02/16/2021 Carlotta Mckeon Attending Physician [address] [place] [address], [place] (Office): [facility] 12/19/2020 - 02/16/2021 Cinthya Jarrell Attending Physician [address] [place] [address], [phone], [place] (Office): [facility] 12/19/2020 - 02/16/2021 Kristy Gonzales Attending Physician [address] [place] [address], [phone], [place] (Office[place] : [facility] 12/19/2020 - 02/16/2021 Katie Younger Attending Physician [facility] [address] [facility], [place], [address], [place]Office): : [facility] 12/19/2020 - 02/16/2021 Melinda Muñiz Attending Physician [address] [facility] [address], [place], [address], [place] (Office): : [facility] 12/19/2020 - 02/16/2021 Starla Cloud Attending Physician [address] [place] [address], [id number], [place] (Office): [facility] 12/19/2020 - 02/16/2021 Immunizations Immunization Status Vaccine Details Vaccine Code CodeSystem Brice e Notes TB 2 Step Mantoux Skin Test completed tuberculin skin test; unspecified formulation lotNumber: [id number] expiry: 07/23/2022 Mfg: [employer] Given 0.1 ml Right Forearm intradermally Step 1 of Multi-step 98 CVX created date: 12/29/2020 consent date: 12/29/2020 administere d date: 12/29/2020 SARS-COV-2 (COVID-19) completed SARS-COV-2 (COVID-19) vaccine, vector non-replicating, recombinant spike protein-Ad26, preservative free, 0.5 mL Mfg: Moderna Step 2 of Multi-step with next step required 212 CVX created date: 12/19/2020 administere d date: 11/27/2020 SARS-COV-2 (COVID-19) completed SARS-COV-2 (COVID-19) vaccine, vector non-replicating, recombinant spike protein-Ad26, preservative free, 0.5 mL Mfg: Moderna Step 1 of Multi-step with next step required 212 CVX created date: 12/19/2020 administere d date: 10/30/2020 Mental Status Section Date Assessment Total Score Description 02/16/2021 BIMS 15 cognitively int act CAM 0 No delirium ind icated PHQ-9 02 minimal depress ion 12/26/2020 BIMS 15 cognitively int act CAM 0 No delirium ind icated PHQ-9 05 mild depression Problems Problem # Description Date of onset Resolved Date Code CodeSystem Concern Status 1 HYPERKALEMIA 12/23/[address] activ e 2 ANEMIA, UNSPECIFIED 12/19/[address] active 3 HYPERLIPIDEMIA, UNSPECIFIED 12/19/[address] active 4 INFECTION FOLLOWING A PROCEDURE, OTHER SURGICAL SITE, INITIAL ENCOUNTER 12/19/[address] active 5 OBSTRUCTIVE SLEEP APNEA (ADULT) (PEDIATRIC) 12/19/[address] active 6 RESTLESS LEGS SYNDROME 12/19/[address] active 7 SCHIZOAFFECTIVE DISORDER, BIPOLAR TYPE 12/19/[address] active 8 TYPE 1 DIABETES MELLITUS WITH DIABETIC MONONEUROPATHY 12/19/[address] active 9 UNSPECIFIED FRACTURE OF LEFT FEMUR, SEQUELA 12/19/[address] active 10 UNSPECIFIED FRACTURE OF UNSPECIFIED LUMBAR VERTEBRA, SUBSEQUENT ENCOUNTER FOR FRACTURE WITH ROUTINE HEALING 12/19/[address] active Reason for Referral No Reasons for Referral Entered Social History Social History Observation Description Start Date End Date Code Code System Current Smoking Status Tobacco smoking consumption unknown 959509406 SNOMED CT Sex Assigned At Female 1970 12810-9 [facility] Vital Signs Code Code System Vitals Name Values and Units Timing Information 75167-5 [facility] Pain Level Value=6.0 02/16/2021 9279-1 [facility] Respiratory Rate Value=18.0 Units=/m in 02/15/2021 8462-4 [facility] Blood Pressure-Diastolic Value=76 Un its=mmHg 02/15/2021 8480-6 [facility] Blood Pressure-Systolic Nefhg=808 Un its=mmHg 02/15/2021 8310-5 [facility] Body Temperature Value=96.4 Units=?? F 02/15/2021 8867-4 INC Heart rate Value=88.0 Units=/min 42844-2 [facility] O2 % BldC Oximetry Value=95.0 Units= % 02/15/2021 82244-5 [facility] Weight Ppycl=330.4 Units=Lbs 2339-0 [facility] Blood Sugar Pjdbi=785.0 Units=mg/dL 02/10/2021 8302-2 [facility] Height Value=60.0 Units=Inches 12/19/2020
--- OUTSIDE RECORDS SUMMARY | 2024-09-19 18:11 | XMS_ITS | Continuity of Care Document ---
Author Organization [facility], [facility] Address [address] [facility] [place] [address] Assessment Encounter Date Assessment Date Assessment LastModified by Organization Details LastModified Time 09/19/2024 09/19/2024 Patient presente d to office [...] Lab CBC w/ auto diff 2024 025 [facility], [address] [place] [address], [id number], 09/19/2024 15:17:35 CMP, serum or plasma 2024 025 [facility], [address] [place] [address], [id number], 09/19/2024 15:17:35 hemoglobi n A1c, QN, blood 2024 025 [facility], [address] [place] [address], [id number], 09/19/2024 15:17:35 Referral None recorded. Procedures None recorded. Surgeries None recorded. Imaging MAMMO, screening , digital, bilateral 2024 025 [facility], [address] [facility], [facility], [place], [address], 09/19/2024 15:45:46 bone density 2024 025 [facility], [address] [facility], [facility], [place], [address], 09/19/2024 15:45:46 Medication Orders None recorded. Patient TargetsNo targets recorded. Patient Instructions Encounter Date Encounter Id Patient Instructions Last Modified By Organization Details Last Modified Time 09/19/2024 [id number] pulse oximetry* VANITA Not available 09/19/2024 16:36:19 [...] Abnormal Flag Note LastModifiedBy Organization Detail LastModifiedTime 09/20/19 25 09/19/2024 pulse oxime try* Result 96 Not Available [facility] [address] [facility], [place], [address], 09/14/2024 20:01:22 Result Notes None recorded. Problems Name Problem SNOMED Code Status Onset Date Resolution Date Notes Provider Name and Address Organization Details Recorded Time Environm ental allergy 766063088 Active 2017 Not Available [facility] 3 22:18:52 Type 2 diabetes mellitus 74869871 Active 2017 Not Available [facility] 3 22:18:52 Low back pain 534928653 Active 2017 Not Available [facility] 3 22:18:52 History of bypass of stomach 178613240 Completed 201707/13/20182002 Merna Gonzalez NP, S [address] [place], [address], [facility] 9 08:32:02 History of total hysterec norbert with bilatera l salpingo -oophore ctomy 039174959 Completed 201707/13/20182010 Merna Gonzalez NP, S [address] [place], [address], [facility] 9 08:32:23 Bipolar disorder 78234280 Active 2017 Not Available [facility] 3 22:18:52 Iron deficien cy anemia 86071190 Active 2017 Not Available [facility] 3 22:18:53 Inflamma tion of sacroili ac joint 74030342 Active 2017 Not Available [facility] 3 22:18:52 Irritabl e bowel syndrome 61416894 Active 2017 Not Available [facility] 3 22:18:51 Obstruct juan pablo sleep apnea syndrome 76371393 Active 2017 uses CPAP Not Available [facility] 3 22:18:53 History of cholecys tectomy 146101628 Completed 201707/13/2018 Merna Gonzalez NP, S [address] [place], [address], [facility] 9 08:32:20 History of hernia repair 09170472279 109 Completed 201707/13/2018 Merna Gonzalez NP, S [address] [place], [address], [facility] 9 08:31:56 Bladder muscle dysfunct ion - overacti ve Active 2017 Not Available [facility] 3 22:18:52 Sedative overdose 359210046 Active 2017 Not Available [facility] 3 22:18:52 Eating disorder 78491217 Active 2017 Not Available [facility] 3 22:18:52 Essentia l hyperten gume 57247572 Active 2017 Not Available [facility] 3 22:18:52 Atypical pneumoni a 685334784 Active 2017 Not Available [facility] 3 22:18:52 Insomnia 397401422 Active 2018 Not Available [facility] 3 22:18:52 History of pancreat itis 24185562889 107 Active 2018 Not Available [facility] 3 22:18:53 Diabetic peripher al neuropat hy 396134146 Active 2018 Not Available [facility] 3 22:18:52 Depressi ve disorder 55176427 Active 2020 Not Available [facility] 3 22:18:52 Abscess 954180847 Active 2021 Not Available [facility] 3 22:18:52 Tinea corporis 34503806 Active 2021 Not Available [facility] 3 22:18:53 Benign paroxysm al position al vertigo 828274105 Active 2021 Not Available [facility] 3 22:18:52 Benign paroxysm al position al vertigo 467414148 Active 2021 Not Available [facility] 3 22:18:52 Anxiety 93711502 Active 2021 Not Available [facility] 3 22:18:52 Transien t cerebral ischemia 066931118 Active 2021 Not Available [facility] 3 22:18:52 Menopaus e Active 2022 Not Available [facility] 3 22:18:52 Edema of lower extremit y 262197344 Active 2022 Not Available [facility] 3 22:18:51 Postoper ative wound infectio n 53828565 Active 2022 Not Available [facility] 3 22:18:52 Peripher al neuropat hy due to type 2 diabetes mellitus 45504878025 07 Active 2022 Not Available [facility] 3 22:18:52 Obesity 249119117 Active 2022 Not Available [facility] 3 22:18:52 Neurogen ic urinary bladder 544079591 Active 2022 Not Available [facility] 3 22:18:52 Candidia sis of vagina 25021214 Active 2022 Not Available [facility] 3 22:18:53 Asthma 194226527 Active 2022 Not Available [facility] 3 22:18:52 Dyspnea 160380836 Active 2023 GUI LALA [address] [place], [address], [facility] 4 09:32:52 Cough 35091796 Active 2023 Jovany Jacobs DO [address] [place], [address], [facility] 4 16:59:37 Allergic asthma 028224401 Active 2023 GUI LALA [address] [place], [address], [facility] 4 15:23:32 Cellulit is of buttock 66945175 Active 2023 GUI LALA [address] [place], [address], [facility] 4 15:25:22 Ruptured abdomina l aortic aneurysm 59993171 Active 2023 GUI LALA [address] [place], [address], [facility] 4 15:29:17 Menopaus al flushing 361212927 Active 2023 GUI LALA [address] [place], [address], [facility] 4 15:38:47 Pressure injury of buttock 030450554 Active 2023 Jovany Jacobs, DO [address] [place] [address], [address], [facility] 4 13:17:05 Dizzines s 873798506 Active 2023 Jovany Jacobs DO [address] [place] [address], [address], [facility] 4 13:32:19 Instabil ity of joint of left knee 35467941901 66282 Active 2023 Jovany Jacobs, [address], [address], [facility] 4 15:24:51 Menopaus al syndrome 616711963 Active 2023 Jovany Jacobs DO [address] [place] [address], [address], [facility] 4 21:35:51 Nummular eczema 00585814 Active 2024 Jovany Jacobs [address], [address], [facility] 5 15:28:07 Broken skin 092721534 Active 2024 Jovany Jacobs [address], [address], [facility] 5 15:27:35 Notes:Some problems listed i n Documents: #[id number], #[id number], #[id number] could not be added to this patient's chart. Please review these documents and add these problems to the patient's chart manually as needed. Problem Notes None recorded. Procedures Surgical History Date Name Laterality Status Provider Name and Address Organization Details Recorded Time 012 colonoscopy completed Merna Gonzalez NP, S [address] [place] [address], [address], [facility] 07/13/2018 08:27:19 Total hysterectomy completed Merna Gonzalez NP, S [address] [place] [address], [address], [facility] 07/13/2018 08:26:32 Cholecystectomy completed Merna pabon NP, S [address] [place] [address], [address], [facility] 07/13/2018 08:26:42 section completed Merna ramos NP, S [address] [place] [address], [address], [facility] 07/13/2018 08:30:05 repair of umbilical hernia completed Merna Gonzalez NP, S [address] [place] [address], [address], [facility] 07/13/2018 08:30:23 Gastric bypass for obesity completed Merna Gonzalez NP, S [address] [place] [address], [address], [facility] 07/13/2018 08:30:37 panniculectomy completed Merna patel NP, S [address] [place] [address], [address], [facility] 07/13/2018 08:30:51 abdominoplasty completed Merna patel NP, S [address] [place] [address], [address], [facility] 07/13/2018 08:31:08 Imaging Results None recorded. Procedure Notes None recorded. Medical Equipment None Reported. Allergies Allergen ID Allergen Name Allergen Category Reaction Reaction Severity Criticality Documentation Date Start Date Code Code System Note Provider Name and Address Organization Details Recorded Time 230 cyclobenz aprine hydrochlo ride medicatio n Not available Not available Not available 07/26/2017 26684 Rx[facility] 8 11:01:47 231 adhesive tape environme nt,medica tion Not available Not available Not available 07/26/2017 76329 UNK [facility] 8 11:01:51 2528 nystatin medicatio n vomiting Not available Not available 04/12/2018 7597 RxNorm Fanta Fang beckman [place] [facility] 8 12:01:43 Medications Name Sig Start Date [...] SPIT TWICE DAILY START IN 24 HRS 02/26 /2021 completed Not Available Not Available Not Available Vitamin C active Not Available Not Myra ilable Not Available folic acid take 1 tablet by mouth once a day 02/18 completed Not Available Not Available Not Available hydrocodone 7.5 mg-acetamin ophen 300 mg tablet 3 times per day 02/18 completed Not Available Not Available Not Available BD Ultra-Fine Short Pen Needle 31 gauge x /16 active Not Available Not Available Not Available [...] (2 mg/1.5 mL) subcutaneou s pen injector 05/12 /2023 completed Not Available Not Available Not Available Jese DVT-PE Treatment 30-Day Starter 5 mg (74 [...] Not Available Not Available Not Avai lable Dexcom G7 Sensor device USE DIRECTED TO MONITOR BLOOD SUGAR active Not Available Not Available No t Available Veozah 45 mg tablet TAKE 1 TABLET BY MOUTH EVERY DAY active Not Available Not Available No t Available Vitals Date Recorded Body height Systolic blood pressure Diastolic blood pressure Provider Name and Address Organization Details Last Updated DateTime 09/19/2024 152.4 cm 120 mm[Hg] 68 mm[Hg] Angela Talbert [facility] 09/19/2024 15:01:51 Social History Question Answer Notes LastModified by Organizat ion Details LastModified Time Tobacco Smoking Status Former Smoker Angela beckman [facility] 12/04/2022 13:59:48 What Was The Date Of Your Most Recent Tobacco Screening? 09/19/2024 Information not available 09/19/2024 How Much Tobacco Do You Smoke? 1 PPD [email or web address] Information not available 07/19/2020 Do You Or Have You Ever Used Any Other Forms Of Tobacco Or Nicotine? No [email or web address] Information not available 10/26/2023 Sex: Unknown Functional Status None recorded. Mental Status None recorded. Family History Relationship Description Onset Age of this Age Resolved Age Notes LastModified by Organization Details LastModified Time Mother Coronary arterioscler osis thn, NIDDM [email or web address] Not available 07/13/2018 08:29:14 Medical History No medical history recorded. Gynecological HistoryNo gynecological history recorded. Obstetrics History GPAL:G 0 P 0 0 0 0 Past Encounters Encounter ID Performer Location Encounter Start Date Encounter Closed Date Diagnosis/Indication Diagnosis SNOMED-CT Code Diagnosis ICD10 Code Diagnosis Note [id number] Jovany Jacobs DO [facility] [address] [facility] [address],[place] [address] 09/19/2024 14:47:30 09/19/2024 15:45:46 Screening for cardiovascular system disease 312214563 Z13.6 will need further lab Screening for malignant neoplasm of colon 984650535 Z12.11 currently not abole to do colonoscop y Screening for osteoporosis 286299419 Z13.820 Screening mammography 24 687077 Z12.31 Asthma 424493067 J45.90 9 seems stablebut still smokes Essential hypertension 47010335 I10 bp was stable warned her again of untreated sleep apnea last bp was around 118 / 70 Type 2 za betes mellitus 01818933 E11.40 a1c is 10.6 will be seeing the endo diabetes spec next weekneeds a sliding scale and needs to have the dexcom General ex amination of patient 062425678 Z00.01 still trying to walk able to stand better now unwilling to give upwill need lab Broken skin 240579244 R2 3.8 Health Concerns Section Related Observation LastModified by Organization Detai ls LastModified Time None Recorded Concern Status LastModified by Organization Details LastModified Time None Recorded Payers Encounter Date Sequence Insurance Name Policy Number Policy Imlan Covered Member ID [place] Member ID Guarantor Name 09/19/2024 1 [place] [id number] [place] [id number] [place] 09/19/2024 2 [place] [employer] [place] [id number] [place] Notes Date Note Type Note Provider Name and Address Organization Details Recorded Time 5 text/htm l Care Management - DiabetesReported [...] detailreviewed meds in detail Jovany Jacobs, DO [address] [place] [address], [place], [address], [facility] 09/19/2024 15:36:54 OBGyn Episode No OBEpisode recorded.
--- OUTSIDE RECORDS SUMMARY | 2024-09-19 18:11 | XMS_ITS ---
Author Organization [facility] Care Team Providers Care Cloud Operations Engineer Name Role Phone Vince, Monik Davenport Unavailable Unavailable Elina Boudreaux Unavailable Unavailable Gricelda Acosta Unavailable Unavailable Anabel BANEGAS, Horacio Stringer Unavailable Unavailable BrandyJojo perea Unavailable Unavailable Jv Buenrostrodrkrysten Unavailable Unavailable Allergies and adverse reactions Code CodeSystem Substance Reaction Severity StartDate Concern Status Tape Unknown 10/03/2020 active Care Team Name Role Address Phone Organization Dates Monik Clarke PCP [address] [place] [address], [facility] (Office): : [facility] 10/12/2020 - 10/29/2020 Elina Boudreaux Attending Physician [address] [place] [address], [facility] (Office): : [facility] 10/12/2020 - 10/29/2020 Gricelda Acosta Attending Physician [address] [place] [address], [facility] (Office): : [facility] 10/12/2020 - 10/29/2020 Horacio Little NP Attending Physician [address] [place] [address], [place] (Office): [facility] 10/12/2020 - 10/29/2020 Jojo Nava Attending Physician [address] [facility] [address], [place] [address], [facility] (Office): : [phone] [facility] 10/12/2020 - 10/29/2020 Lexy Buenrostro Attending Physician [address] [facility] [address], [place], [place], [facility], [facility] (Office): : [facility] 10/12/2020 - 10/29/2020 Goals Section Description Status Target Date The resident's will Pressure ulcer will show signs of healing and remain free from infection by/through review date. Active I will enjoy participating i n a satisfying activity program through the next review date. Active 2021 The resident will be/remain free from catheter-related trauma through review date. Active 2021 The resident will be/remain free of psychotropic drug related complications, including movement disorder, discomfort, hypotension, gait disturbance, constipation/impaction or cognitive/behavioral impairment through review date. Active 0 2021 The resident will have intac t skin, free of redness, blisters or discoloration by/through review date. Active 2021 The resident will improve cu rrent level of function in (SPECIFY ADLs) through the review date. Resident will be able to: (SPECIFY) Active 2021 The resident will not sustai n serious injury through the review date. Active 2021 The resident will show no s/ sx of Urinary infection through review date. Active 2021 Will have intake >/=75% of m eals W ill have stable weights W ill tolerate diet S kin intact B S <200 W ill have no s/sx of dehydration Active 2021 Mental Status Section Date Assessment Total Score Description 10/29/2020 CAM 0 No delirium ind icated 10/07/2020 BIMS 14 cognitively int act CAM 0 No delirium ind icated PHQ-9 00 Problems Problem # Description Date of onset Resolved Date Code CodeSystem Concern Status 1 ACUTE KIDNEY FAILURE , UNSPECIFIED [address] active 2 ACUTE POSTHEMORRHAGI C ANEMIA [address] active 3 ANXIETY DISORDER, UNSPECIFIED [address] active 4 BIPOLAR DISORDER, UNSPECIFIED [address] active 5 DISPLACED INTERTROCHANTERIC FRACTURE OF LEFT FEMUR, SUBSEQUENT ENCOUNTER FOR CLOSED FRACTURE WITH ROUTINE HEALING [address] active 6 ESSENTIAL (PRIMARY) HYPERTENSION [address] active 7 FRACTURE OF MANUBRIUM, SUBSEQUENT ENCOUNTER FOR FRACTURE WITH ROUTINE HEALING [address] active 8 FRACTURE OF ONE RIB, RIGHT SIDE, SUBSEQUENT ENCOUNTER FOR FRACTURE WITH ROUTINE HEALING [address] active 9 HYPERLIPIDEMIA, UNSPECIFIED [address] active 10 OBSTRUCTIVE SLEEP APNEA (ADULT) (PEDIATRIC) [address] active 11 OTHER ABNORMALITIES OF GAIT AND MOBILITY [address] active 12 PERSONAL HISTORY OF OTHER (HEALED) PHYSICAL INJURY AND TRAUMA [address] active 13 SEPSIS, UNSPECIFIED ORGANISM [address] active 14 TOXIC EFFECT OF OTHE R METALS, ACCIDENTAL (UNINTENTIONAL), INITIAL ENCOUNTER [address] active 15 TYPE 2 DIABETES MELLITUS WITH DIABETIC NEUROPATHY, UNSPECIFIED [address] active 16 TYPE 2 DIABETES MELLITUS WITHOUT COMPLICATIONS [address] active 17 UNSPECIFIED FRACTURE OF LEFT ACETABULUM, SUBSEQUENT ENCOUNTER FOR FRACTURE WITH ROUTINE HEALING [address] active 18 UNSPECIFIED FRACTURE OF T9-T10 VERTEBRA, SUBSEQUENT ENCOUNTER FOR FRACTURE WITH ROUTINE HEALING [address] active 19 UNSPECIFIED FRACTURE OF UNSPECIFIED METACARPAL BONE, SUBSEQUENT ENCOUNTER FOR FRACTURE WITH ROUTINE HEALING [address] active 20 UNSTEADINESS ON FEET [address] active 21 WEAKNESS [address] active 22 DIABETES MELLITUS DU E TO UNDERLYING CONDITION WITH DIABETIC AMYOTROPHY [address] active 23 ENCEPHALOPATHY, UNSPECIFIED [address] active Reason for Referral No Reasons for Referral Entered Social History Social History Observation Description Start Date End Date Code Code System Current Smoking Status Tobacco smoking consumption unknown 187308054 SNOMED CT Sex Assigned At Female 1970 38462-0 [facility] Vital Signs Code Code System Vitals Name Values and Units Timing Information 98648-0 [facility] Pain Level Value=0.0 10/29/2020 9279-1 [facility] Respiratory Rate Value=18.0 Units=/m in 10/29/2020 8462-4 [facility] Blood Pressure-Diastolic Value=78 Un its=mmHg 10/29/2020 8480-6 [facility] Blood Pressure-Systolic Nboas=628 Un its=mmHg 10/29/2020 8310-5 [facility] Body Temperature Value=97.0 Units=?? F 10/29/2020 8867-4 [facility] Heart rate Value=88.0 Units=/min 12/2020 81984-1 [facility] O2 % BldC Oximetry Value=95.0 Units= % 10/29/2020 2339-0 [facility] Blood Sugar Hltwd=387.0 Units=mg/dL 10/29/2020
== END 2024-09-19 15:23 | disposition home or self-care (01) ==
LOC: HO.MANLDS 15:22
PROVIDERS: Visit Provider Internal Medicine
DX: E11.40 Type 2 diabetes mellitus with diabetic neuropathy, unspecified (principal); Z00.01 Encounter for general adult medical examination with abnormal findings
CPT/HCPCS: 36415; 80053; 83036; 85025

== ENCOUNTER 2025-03-06 12:10 | Outpatient (REF) | payer BC, MEDICARE, SELFPAY ==
--- OUTSIDE RECORDS SUMMARY | 2025-03-06 14:53 | XMS_ITS | Encounter Summary ---
Author Organization [facility] Address [address] [facility] [address] [facility] [address] [place] [address] Phone Care Team Providers Care Manager Copy Name Role Phone José AntonioJovany courtney Primary Care Provider [phone] Bigda, Jovany Harley DO Unavailable José Antonioda, Jovany Cherri DO Unavailable Bigda, Jovany A DO Primary Care Provider [phone] Encounter Details Date Type Department Care Team (Late Contact Info) Description 07/05/2020 Telephone [facility] [address] [place] [address] Jovany Max DO [address] [place] [address] [email or web address] Social History Tobacco Use Types Packs/Day Years Used Date Smoking Tobacco: Every Day Smokeless Tobacco: Never Comments Unknown Sex and Gender Information Value Date Recorded Sex Assigned at Not on file Legal Sex Female 7:35 PM EST Gender Identity Not on file Sexual Orientation Not on file documented as of this encounter Plan of Treatment Upcoming Encounters Date Type Department Care Team (Late Contact Info) Description 04/16/2025 2:10 PM EST Office Visit [facility] [address] [place] [address] Renata Walker, SHADE [address] [facility], 1st [address] [place], [place] [id number] 04/20/2025 9:00 AM EST [facility] [address] [place] [address] Tanisha Gamble, LDN [address] [facility], 1st [place] [address] documented as of this encounter Visit Diagnoses Not on filedocumented in this encounter Additional Health Concerns 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 per Infection Control as part of historical infection status reconciliation 06/10/2011 06/10/2011 08/10/19 1:22 AM EDT documented as of this encounter Care Teams Manager Copy Relationship Specialty Start Date End Date Jovany Max DO [email or web address] PCP - General Internal Medicine 06/17/18 09/19/24 Jovany Max DO [address] [place] [address] [email or web address] PCP - General Internal Medicine 09/20/24 Jovany Max DO [address] [place] [address] [email or web address] Insurance Assigned Provider 09/24/18 05/09/21 Jovany Max DO [address] [place] [address] Insurance Assigned Provider 08/28/23 documented as of this encounter Additional Source Comments The information contained in this document represents components of the legal health record. It is not the complete legal health record.[facility]
--- OUTSIDE RECORDS SUMMARY | 2025-03-06 14:53 | XMS_ITS | Patient Health Record ---
Author Organization [facility] Address [address] [place] [address] Care Team Providers Care Department Coordinator Name Role Phone Jovany Max MD Primary Care Provider Roula Isaac Unavailable [phone] Allergies Allergen (clinical drug ingredient) Drug/Non Drug Allergy documented on EMR Reaction Allergy Type Onset Date Status Adhesive Unknown Allergy Active Results Component Value Reference Range Notes HEMOGLOBIN A1C (GLYCOHEMOGLO BIN) Reviewed date:03/23/2024 03:00:17 PM Interpretation: Performing Lab: Notes/Report: TOTAL HEMOGLOBIN (HGBA1C) 10.1 HEMOGLOBIN A1C (GLYCOHEMOGLO BIN) Reviewed date:06/29/2024 11:50:07 AM Interpretation: Performing Lab: Notes/Report: HEMOGLOBIN A1C % (HH) 8.8 HEMOGLOBIN A1C (GLYCOHEMOGLO BIN) Reviewed date:09/28/2024 02:13:16 PM Interpretation: Performing Lab: Notes/Report: HEMOGLOBIN A1C % (HH) 7.5 HEMOGLOBIN A1C (GLYCOHEMOGLO BIN) Reviewed date:12/21/2024 02:32:37 PM Interpretation: Performing Lab: Notes/Report: HEMOGLOBIN A1C % (HH) 8.0 Reason For Referral No Information Medications Medication SIG (Take, Route, Frequency, Duration) Notes Start Date End Date Status Vitamin C Active oxyCODONE HCl 10 MG 1 tablet as needed Orally every 6 hrs Not-Taking Nystatin Active Lyllana Active DULoxetine HCl 30 MG 1 capsule Orally Once a day Active eliquis 5 mg Not-Rogelio ing Gabapentin 300 MG 1 capsule Orally Once a day Active metFORMIN HCl 1000 MG 1 tablet with a meal Orally Once a day Active PARoxetine HCl 10 MG 1 tablet in the morning Orally Once a day Active Pramipexole Dihydrochloride 0.5 MG 1 tablet Orally Once a day Active Spironolactone 50 MG 1 tablet Orally Once a day Active Tradjenta 5 MG 1 tablet Orally Once a day Active Tylenol Active clonazePAM 1 MG 1 tablet Orally Once a day coming off Active Doxepin HCl 10 MG 1 capsule at bedtime Orally Once a day Active Ketoconazole 2 % 1 application Apply a thin layer of cream externally Twice a day to scaling areas on feet including between the toes; Duration: 30 days 12/21/2024 Active Multivitamin Active Tresiba FlexTouch Ac tive ZyrTEC 10 MG 1 tablet Orally Once a day Active Veozah 45 MG 1 tablet Orally Once a day Active Meclizine HCl 25 MG 1 tablet as needed Orally every 12 hrs Active Zafirlukast 20 MG 1 tablet 1 hour before or 2 hours after meals Orally Twice a day Active Belsomra 10 MG 1 tablet at bedtime as needed Orally Once a day Active Ondansetron HCl prn Acti ve AFO-fixed . 1 . Wear daily; Duration: . 03/15/2023 Not-Taking Albuterol Active ARIPiprazole 30 MG 1 tablet Orally Once a day Active Farxiga 10 MG 1 tablet Orally Once a day Active Baclofen 20 MG 1 tablet Administer without regards to meals as needed Orally Twice a day Active Immunizations Vaccine Route Administration Date Status Comme nts Influenza Unknown 12/21/2024 Refused Social History Tobacco Use: Social History Observation Description Date Details (start date - stop date) Never Smoker NA - NA Tobacco use other than smoking: Question Answer Notes Are you an other tobacco user? No Tobacco Control (Standard) Question Answer Notes Tobacco use: Nonsmoker Additional Findings: Tobacco non-user Current no nsmoker AUDIT-C (Standard) Question Answer Notes Did you have a drink containing alcohol in the p ast year? No Points 0 Interpretation Negative Problems Problem Type SNOMED Code ICD Code Onset Dates Problem Status W/U Status Risk Notes Problem Polyneuropathy due to type 2 diabetes mellitus (730393522) Type 2 diabetes mellitus with polyneuropathy (E11.42) Active confirmed Vital Signs Blood pressure diastolic 74 mm Hg 12/21/2024 Height 5ft in 12/21/2024 Blood pressure systolic 129 mm Hg 12/21/2024 Weight 236 lbs 12/21/2024 BMI 46.09 kg/m2 12/21/2024 Encounters Encounter Location Date Provider Diagnosis [address] [address] 03/23/2024 Roula Dc Foot drop, left M21. 372 ; Type 2 diabetes mellitus with polyneuropathy E11.42 and Tinea unguium B35.[address] [address] 06/29/2024 Roula Dc Type 2 diabetes mellitus with polyneuropathy E11.42 ; Xerosis of skin L85.3 ; Foot drop, left M21.372 and Tinea unguium B35.[address] [address] 09/28/2024 [facility] D[facility] Type 2 diabetes mellitus with polyneuropathy E11.42 ; Xerosis of skin L85.3 ; Foot drop, left M21.372 and Tinea unguium B35.[address] [address] 12/21/2024 Roula Dc Type 2 diabetes mellitus with polyneuropathy E11.42 ; Tinea pedis of both feet B35.3 ; Foot drop, left M21.372 and Tinea unguium B35.[address] [address] 08/24/2024 Roula Dc Assessments Encounter Date Diagnosis (ICD Code) Assessment Notes Treatment Notes Treatment Clinical Notes Section Notes 03/23/2024 Foot drop, left (ICD-10 - M21.372) 06/29/2024 Xerosis of skin (ICD-10 - L85.3) 06/29/2024 Type 2 diabetes mellitus with polyneuropathy (ICD-10 - E11.42) 09/28/2024 Type 2 diabetes mellitus with polyneuropathy (ICD-10 - E11.42) 12/21/2024 Type 2 diabetes mellitus with polyneuropathy (ICD-10 - E11.42) 12/21/2024 Tinea pedis of both feet (ICD-10 - B35.3) 09/28/2024 Xerosis of skin (ICD-10 - L85.3) 12/21/2024 Foot drop, left (ICD-10 - M21.372) 03/23/2024 Type 2 diabetes mellitus with polyneuropathy (ICD-10 - E11.42) 06/29/2024 Foot drop, left (ICD-10 - M21.372) 03/23/2024 Tinea unguium (ICD-10 - B35.1) 06/29/2024 Tinea unguium (ICD-10 - B35.1) 09/28/2024 Foot drop, left (ICD-10 - M21.372) 12/21/2024 Tinea unguium (ICD-10 - B35.1) 09/28/2024 Tinea unguium (ICD-10 - B35.1) Plan Of Treatment Next Appt Details Provider Name:Roula barton, 03/22/2025 02:30:00 PM, [address] [facility], [place], [address], Insurance Providers Payer Name Payer Address Payer Phone Subscriber Number Group Number Insured Name Patient Relationship to Insured Coverage Start Date Coverage End Date [facility] All Others [address] [place] [address] [phone] [id number] Ty Noe Spouse - patient is the spouse of the insured [employer] [id number] [address] [address] [place] [address] [id number] Adryan Noe Self - patient is the insured Medical (General) History Medical History History ICD Code Anemia Anxiety Arthritis asthma Back,Hip,and Knee pain Broken bones Depression Diabetic nerve disorder Numbness Poor circulation Psoriasis/eczema Psychiatric disorder Stroke Chicken pox Joint implants/screws Transfusions Surgical History Surgery Date(Month/Year)
--- OUTSIDE RECORDS SUMMARY | 2025-03-06 14:53 | XMS_ITS | Data Portability ---
Author Organization [facility], Telehealth Patient Home Address [address] [place] [address] Assessment Encounter Date Assessment Date Assessment LastModified by Organization Details LastModified Time 06/19/2024 06/19/2024 juanito Not available 05/25 15:25:47 [...] healthy living. [email or web address] Not available 09/14/2024 19:58:18 11/27/2024 11/27/2024 [id number] [place] [id number] (CHANGE COORDINATOR) MDM MODERATE MUST MEET 2 OUT OF [...] EACH ELEMENT THAT IS COVERED Not available 11/27/2024 14:49:01 02/19/2025 02/19/20[place] [id number] [place] [id number] (CHANGE COORDINATOR) MDM MODERATE MUST MEET 2 OUT OF [...] EACH ELEMENT THAT IS COVERED Not available 02/19/2025 15:11:41 Plan of Treatment Reminders Order Date Submit Date Provider Last Modified By Organization Details Last Modified Time Details Appointments FOLLOW UP 15 2024 03:00P M DR JACOBS Not available Not available Not available Lab CBC w/ auto diff 2024 025 [facility], [address] [place] [address], [address], 09/19/2024 15:17:35 CMP, serum or plasma 2024 025 [facility], [address] [place] [address], [address], 11/22/2024 09:53:58 hemoglobi n A1c, QN, blood 2024 025 [facility], [address] [place] [address], [address], 09/20/2024 12:52:38 Referral None recorded. Procedures None recorded. Surgeries None recorded. Imaging US, duplex, venous, lower extremity , unilatera l - recheck clot of the L femoral vein 2024 025 [facility], [address] [place], [address], 10/20/2024 08:37:09 MAMMO, screening , digital, bilateral 2024 025 [facility], [address] [facility], [place], [address], 10/03/2024 08:08:33 bone density 2024 025 [facility], [address] [facility], [facility], [place], [address], 10/18/2024 08:18:54 Medication Orders ropinirol e 2 mg tablet 2024 025 [facility] [place] [facility] #[id number], [address] [place] [address], [id number], 02/19/2025 15:06:08 tizanidin e 4 mg tablet 2024 025 [facility] [place] [facility] #[id number], [address] [place] [address], [id number], 02/19/2025 15:06:06 Xarelto DVT-PE Treatment 30-Day Starter 15 mg(42)-20 mg(9) tablet pack 2024 025 [facility] [place] [facility] #[id number], [address] [place] [address], [id number], 11/27/2024 14:51:42 fluticaso ne propionat e 110 mcg/actua tion HFA aerosol inhaler 2024 025 [facility] [place] [facility] #[id number], [address] [place] [address], [id number], 06/19/2024 15:32:45 pramipexo le 1 mg tablet 2024 025 [facility] [place] [facility] #[id number], [address] [place] [address], [id number], 02/19/2025 14:59:37 clobetaso l 0.05 % topical cream 2024 025 [facility] [place] [facility] #[id number], [address] [place] [address], [id number], 06/19/2024 15:29:01 Patient TargetsNo targets recorded. Patient Instructions Encounter Date Encounter Id Patient Instructions Last Modified By Organization Details Last Modified Time 06/19/2024 [id number] pulse oximetry* VANITA Not available 06/19/2024 15:43:23 learning about asthma Not available 06/19/2024 15:28:54 09/19/2024 [id number] pulse oximetry* VANITA Not available 09/19/2024 16:36:19 advance care planning: care instructions Not available 09/19/2024 15:16:18 Discussed and explained advance directives such as standard forms to the . Face to face discussion lasted for a duration of ___ minutes. jbigda Not available 09/14/2024 19:58:18 11/27/2024 [id number] pulse oximetry* Not available 11/27/2024 14:51:33 02/19/2025 [id number] restless legs syndrome: care instructions Not available 02/19/2025 15:05:48 Reason for Referral None Reported. Results Created Date Observation Date Name Description Value Unit Range Abnormal Flag Note LastModifiedBy Organization Detail LastModifiedTime 06/19/1906/19/2024 pulse oxime try* Result 86 Not Available [facility] [address] [place] [address] [address], [place], [address], 06/16/2024 08:55:58 09/20/1909/19/2024 pulse oxime try* Result 96 Not Available [facility] [address] [place] [address] [address], [place], [address], 09/14/2024 20:01:22 11/28/1911/27/2024 pulse oxime try* Result 92 Not Available [facility] [address] [place] [address] [address], [place], [address], 11/23/2024 11:02:27 11/28/19 25 11/14/2024 US, ana x, mario alberto s, lower extre mity, unila teral No observ ation record ed. [email or web address] [facility] [address] , [place], [address], 02/19/2025 14:49:40 Result Notes None recorded. Problems Name Problem SNOMED Code Status Onset Date Resolution Date Notes Provider Name and Address Organization Details Recorded Time Environm ental allergy 779457903 Active 2017 Not Available [facility] 3 22:18:52 Type 2 diabetes mellitus 04091090 Active 2017 Not Available [facility] 3 22:18:52 Low back pain 606848677 Active 2017 Not Available [facility] 3 22:18:52 History of bypass of stomach 454223878 Completed 201707/13/20182002 Merna Gonzalez NP, [address] [place], [address], [facility] 9 08:32:02 History of total hysterec norbert with bilatera l salpingo -oophore ctomy 053621469 Completed 201707/13/20182010 Merna Gonzalez NP, [address] [place], [address], [facility] 9 08:32:23 Bipolar disorder 43956632 Active 2017 Not Available [facility] 3 22:18:52 Iron deficien cy anemia 14191182 Active 2017 Not Available [facility] 3 22:18:53 Inflamma tion of sacroili ac joint 17157815 Active 2017 Not Available [facility] 3 22:18:52 Irritabl e bowel syndrome 27081488 Active 2017 Not Available [facility] 3 22:18:51 Obstruct juan pablo sleep apnea syndrome 86221934 Active 2017 uses CPAP Not Available [facility] 3 22:18:53 History of cholecys tectomy 191411308 Completed 201707/13/2018 Merna Gonzalez NP, [address] [place], [address], [facility] 9 08:32:20 History of hernia repair 13234284735 109 Completed 201707/13/2018 Merna Gonzalez NP, [address] [place], [address], [facility] 9 08:31:56 Bladder muscle dysfunct ion - overacti ve Active 2017 Not Available [facility] 3 22:18:52 Sedative overdose 183938815 Active 2017 2014 Not Available [facility] 3 22:18:52 Eating disorder 12077485 Active 2017 Not Available [facility] 3 22:18:52 Essentia l hyperten gume 30672146 Active 2017 Not Available [facility] 3 22:18:52 Atypical pneumoni a 327470127 Active 2017 Not Available [facility] 3 22:18:52 Insomnia 840992763 Active 2018 Not Available [facility] 3 22:18:52 History of pancreat itis 80026516660 107 Active 2018 Not Available [facility] 3 22:18:53 Diabetic peripher al neuropat hy 933065546 Active 2018 Jovany Jacobs, [address] [place], [address], [facility] 5 16:47:12 Depressi ve disorder 49839238 Active 2020 Not Available [facility] 3 22:18:52 Abscess 938290244 Active 2021 Not Available [facility] 3 22:18:52 Tinea corporis 56689207 Active 2021 Not Available [facility] 3 22:18:53 Benign paroxysm al position al vertigo 208823409 Active 2021 Not Available [facility] 3 22:18:52 Benign paroxysm al position al vertigo 970976211 Active 2021 Not Available [facility] 3 22:18:52 Anxiety 78693634 Active 2021 Not Available [facility] 3 22:18:52 Transien t cerebral ischemia 249329376 Active 2021 Not Available [facility] 3 22:18:52 Menopaus e Active 2022 Not Available [facility] 3 22:18:52 Edema of lower extremit y 363072023 Active 2022 Not Available [facility] 3 22:18:51 Postoper ative wound infectio n 99181986 Active 2022 Not Available [facility] 3 22:18:52 Peripher al neuropat hy due to type 2 diabetes mellitus 81423618931 07 Active 2022 Not Available [facility] 3 22:18:52 Obesity 662571454 Active 2022 Not Available [facility] 3 22:18:52 Neurogen ic urinary bladder 972798946 Active 2022 Not Available [facility] 3 22:18:52 Candidia sis of vagina 85884812 Active 2022 Not Available [facility] 3 22:18:53 Asthma 617815895 Active 2022 Not Available [facility] 3 22:18:52 Dyspnea 068327755 Active 2023 GUI LALA [address] [place], [address], [facility] 4 09:32:52 Cough 62412734 Active 2023 Jovany Jacobs DO [address] [place], [address], [facility] 4 16:59:37 Allergic asthma 420035740 Active 2023 GUI LALA [address] [place], [address], [facility] 4 15:23:32 Cellulit is of buttock 32866279 Active 2023 GUI LALA [address] [place], [address], [facility] 4 15:25:22 Ruptured abdomina l aortic aneurysm 87683642 Active 2023 GUI LALA [address] [place], [address], [facility] 4 15:29:17 Menopaus al flushing 147320722 Active 2023 GUI LALA [address] [place], [address], [facility] 4 15:38:47 Pressure injury of buttock 952643535 Active 2023 Jovany Jacobs DO [address] [place] [address], [address], [facility] 4 13:17:05 Dizzines s 939345730 Active 2023 Jovany Jacobs DO [address] [place] [address], [address], [facility] 4 13:32:19 Instabil ity of joint of left knee 61920361893 83579 Active 2023 Jovany Jacobs DO [address] [place] [address], [address], [facility] 4 15:24:51 Menopaus al syndrome 755179331 Active 2023 Jovany Jacobs DO [address] [place] [address], [address], [facility] 4 21:35:51 Nummular eczema 80866939 Active 2024 Jovany Jacobs DO [address] [place] [address], [address], [facility] 5 15:28:07 Broken skin 757239114 Active 2024 Jovany Jacobs DO [address] [place] [address], [address], [facility] 5 15:27:35 Asthmati c bronchit is 904071030 Active 2024 Jovany Jacobs, DO [address] [place] [address], [address], [facility] 5 14:20:20 Acute deep venous thrombos is of left femoral vein 52717324635 9101 Active 2024 GUI LALA [address] [place] [address], [address], [facility] 5 15:39:01 Acute deep venous thrombos is of right femoral vein 42956131836 9104 Active 2024 GUI LALA [address] [place] [address], [address], [facility] 5 13:33:18 Moderate persiste nt asthma 309790244 Active 2024 Jovany Jacobs DO [address] [place] [address], [address], [facility] 5 22:30:34 Permanen t atrial fibrilla tion 498823126 Active 2024 GUI LALA [address] [place] [address], [address], [facility] 5 10:52:13 Restless legs syndrome 94868480 Active 2024 Jovany Jacobs DO [address] [place] [address], [address], [facility] 5 14:57:34 Bilatera l spasm of muscle of calves 62353975752 637817 Active 2024 Jovany Jacobs DO [address] [place] [address], [address], [facility] 5 15:02:00 Notes:Some problems listed i n Documents: #[id number], #[id number], #[id number] could not be added to this patient's chart. Please review these documents and add these problems to the patient's chart manually as needed. Problem Notes None recorded. Procedures Surgical History Date Name Laterality Status Provider Name and Address Organization Details Recorded Time 012 colonoscopy completed Merna Gonzalez NP, S [address] [place] [address], [address], [facility] 07/13/2018 08:27:19 Total hysterectomy completed Merna Gonzalez NP, S [address] [place] [address], [address], [facility] 07/13/2018 08:26:32 Cholecystectomy completed Merna pabon NP, S [address] [place] [address], [address], [facility] 07/13/2018 08:26:42 section completed Merna ramos NP, S [address] [place] [address], [address], [facility] 07/13/2018 08:30:05 repair of umbilical hernia completed Merna Gonzalez NP, S [address] [place] [address], [address], [facility] 07/13/2018 08:30:23 Gastric bypass for obesity completed Merna Gonzalez NP, S [address] [place] [address], [address], [facility] 07/13/2018 08:30:37 panniculectomy completed Merna patel NP, S [address] [place] [address], [address], [facility] 07/13/2018 08:30:51 abdominoplasty completed Merna patel NP, S [address] [place] [address], [address], [facility] 07/13/2018 08:31:08 Imaging Results None recorded. Procedure Notes None recorded. Medical Equipment None Reported. Allergies Allergen ID Allergen Name Allergen Category Reaction Reaction Severity Criticality Documentation Date Start Date Code Code System Note Provider Name and Address Organization Details Recorded Time 230 cyclobenz aprine hydrochlo ride medicatio n Not available Not available Not available 07/26/2017 70128 RxNorm Maryana beckman [facility] 8 11:01:47 231 adhesive tape environme nt,medica tion Not available Not available Not available 07/26/2017 Maryana beckman [facility] 8 11:01:51 2528 nystatin medicatio n vomiting Not available Not available 04/12/2018 7597 RxNorm Fanta beckman [facility] 8 12:01:43 Medications Name Sig Start [...] 1 TABLET BY MOUTH THREE TIMES DAILY 02/19 completed Not Available Not Available Not Available fluconazole 100 mg tablet Take 2 [...] mg tablet TAKE 1 TABLET BY MOUTH DAILY FOR ANXIETY active Not Available Not Available No t Available cefaclor 500 mg capsule 10/08 completed Not Available Not Available Not Available oxybutynin chloride ER 10 mg tablet,exte nded release 24 hr Take 2 tablets daily. 04/12 completed Not Available Not Available Not Available azithromyci n 250 mg tablet TAKE 2 TABLETS BY MOUTH ON DAY 1 AND THEN TAKE 1 TABLET DAILY FOR THE NEXT 4 DAYS 10/18 completed Not Available Not Available Not Available ibuprofen 800 mg tablet TAKE ONE TABLET BY MOUTH THREE TIMES A DAY NEEDED 03/17 completed Not Available Not Available Not Available tizanidine 4 mg tablet TAKE 1 TABLET BY MOUTH THREE TIMES DAILY FOR 20 DAYS NEEDED active Not Available Not Available No t Available fluconazole 150 mg tablet TAKE 1 TABLET BY MOUTH NOW. MAY REPEAT IN 72 HOURS NEEDED 2024 active Not Available Not Available Not Avai lable ondansetron HCl 8 mg tablet TAKE 1 TABLET BY MOUTH TWICE DAILY active Not Available Not Available No t Available fluconazole 200 mg tablet 10/08 completed Not Available Not Available Not Available clonazepam 0.5 mg tablet TAKE 1 TABLET BY MOUTH AT 6AM AND 1 TABLET EVERY NIGHT AT BEDTIME active Not Available Not Available No t Available clonazepam 1 mg tablet TAKE 1 TABLET BY MOUTH EVERY NIGHT AT BEDTIME FOR ANXIETY active Not Available Not Available No t Available clobetasol 0.05 % topical cream APPLY THIN LAYER TOPICALLY TO THE AFFECTED AREA TWICE DAILY active Not Available Not Available No t Available hydroxyzine pamoate 50 mg capsule TAKE 1 CAPSULE BY MOUTH DAILY AT 1 PM NEEDED FOR ANXIETY OR IRRITABIL ITY.. active Not Available Not Available No t [...] estradiol 0.05 mg/24 hr semiweekly transdermal patch 2024 active Not Available Not Available Not [...] completed Not Available Not Available Not Available lamotrigine 25 mg tablet TAKE 1 TABLET BY MOUTH DAILY IN THE MORNING FOR MOOD active Not Available Not Available No t Available baclofen 20 mg tablet TAKE 1 TABLET BY MOUTH THREE TIMES DAILY 02/19 completed Not Available Not Available Not Available pramipexole 0.5 mg tablet TAKE 1 [...] completed Not Available Not Available Not Available ropinirole 2 mg tablet TAKE 1 TABLET BY MOUTH THREE TIMES DAILY active Not Available Not Available No t Available cephalexin 500 mg capsule TAKE 1 [...] 3 CAPSULES BY MOUTH THREE TIMES DAILY 2024 active Not Available Not Available Not Avai lable montelukast 10 mg tablet TAKE 1 TABLET [...] 90 mcg/actuati on aerosol inhaler INHALE 1 PUFF BY MOUTH EVERY 4 - 6 HOURS NEEDED active Not Available Not Available No t Available SSD 1 % topical cream APPLY TOPICALLY A 1/16 INCH(1.5 MM) THICK LAYER TO ENTIRE AFFECTED AREA BY TOPICAL ROUTE2 TIMES PER DAY active Not Available Not Available No t Available ketoconazol e 2 % topical cream APPLY A THIN LAYER TOPICALLY TO SCALING AREAS ON FEET INCLUDING BETWEEN THE TOES TWICE A DAY active Not Available Not Available [...] completed Not Available Not Available Not Available hydroxyzine pamoate 25 mg capsule TAKE 1 CAPSULE BY MOUTH DAILY AT 1 PM NEEDED FOR ANXIETY OR IRRITABIL ITY active Not Available Not Available No t Available enoxaparin 100 mg/mL subcutaneou s syringe ADMINISTE R 1 ML UNDER THE SKIN EVERY 12 HOURS DIRECTED active Not Available Not Available No t Available aripiprazol e 30 mg tablet TAKE 1 TABLET BY MOUTH DAILY FOR MOOD active Not Available Not Available No t Available duloxetine 30 mg capsule,del ayed release TAKE 1 CAPSULE BY MOUTH EVERY DAY active Not Available Not Available No t Available BD Ultra-Fine Mini Pen Needle 31 gauge x 3/16 USE DIRECTED TO INJECT INSULIN FOUR TIMES DAILY active Not Available Not Available [...] Not Available Not Available No t Available Xarelto 20 mg tablet TAKE 1 TABLET BY MOUTH EVERY DAY active Not Available Not Available No t Available OneTouch Verio test strips USE TO TEST ONCE A DAY active Not Available Not Available No t Available Eliquis 5 mg tablet TAKE 1 TABLET BY MOUTH TWICE DAILY active Not Available Not Available No t Available Farxiga 10 mg tablet active Not Available Not Available No t Available Farxiga 5 mg tablet active Not Available Not Available No t Available Xarelto DVT-PE Treatment 30-Day Starter 15 mg(42)-20 mg(9) tablet pack Take 1 startr pk by oral route for 30 days. 2024 active Not Available Not Available Not Avai lable Belsomra 10 mg tablet TAKE 1 TABLET BY MOUTH EVERY NIGHT FOR INSOMNIA active Not Available Not Available No t Available Belsomra 20 mg tablet TAKE 1 TABLET BY MOUTH EVERY NIGHT FOR INSOMNIA active Not Available Not Available No t [...] Not Available Not Available No t Available Enedinaumalmaz Rivas U-100 Insulin 100 unit/mL subcutaneou s INJECT 4 TO 14 UNITS THREE TIMES DAILY PER SLIDING SCALE. MAX TOTAL DAILY DOSE OF 42 UNITS active Not Available Not Available No t [...] t Available Vitals Date Recorded Body height Heart rate Oxygen saturation Oxygen saturation in Arterial blood by Pulse oximetry Systolic And Diastolic Provider Name and Address Organization Details Last Updated DateTime 5 152.4 cm 113 /min 86 % 86 % 100/64 mm[Hg] Angela Talbert [facility] 5 15:07:42 Date Recorded Body height Systolic And Diastolic Provider Name and Address Organization Details Last Updated DateTime 09/19/2024 152.4 cm 120/68 mm[Hg] Angela Talbert [place] [facility] [place] [facility] 09/19/2024 15:01:51 Date Recorded Body height Oxygen saturation Oxygen saturation in Arterial blood by Pulse oximetry Inhaled oxygen flow rate Heart rate Systolic And Diastolic Provider Name and Address Organization Details Last Updated DateTime 5 152.4 cm 93 % 93 % 2 L/min 110 /min 138/86 mm[Hg] Bhakti Baptiste [facility] 5 15:15:36 Date Recorded Body height Heart rate Oxygen saturation Oxygen saturation in Arterial blood by Pulse oximetry Systolic And Diastolic Provider Name and Address Organization Details Last Updated DateTime 5 152.4 cm 113 /min 92 % 92 % 120/70 mm[Hg] Angela Talbert [facility] 5 14:17:44 Social History Question Answer Notes LastModified by Organizat ion Details LastModified Time Tobacco Smoking Status [facility] 12/04/2022 13:59:48 What Was The Date Of Your Most Recent Tobacco Screening? 11/27/2024 [email or web address] Information not available 11/27/2024 How Much Tobacco Do You Smoke? 1 PPD [email or web address] Information not available 07/19/2020 Sex: Unknown Functional Status None recorded. Mental [...] Diagnosis SNOMED-CT Code Diagnosis ICD10 Code Diagnosis IMO Codes Diagnosis Note [id number] Jovany Jacobs [facility] [address] [facility],[place] [address] 10/08/2017 16:10:25 10/11/2017 08:40:35 Essential hypertension 39350673 I10 bp was stable warned of untreated sleep apnea Type 2 za betes mellitus 92344041 E11.9 hasnt been getting the a1c test Obstructiv e sleep apnea syndrome 98389455 G47.33 not wearing cpap warned of sleep deprivatio n and medical conditons is falling asleep in car told her should not be driving if she is 4087 Jovany Jacobs [facility] [address] [facility], [place] [address] 11/15/2017 14:42:46 11/15/2017 16:10:49 Fever 636403956 R50.9 possibly pneumonia, but with numerous sx, not suggestive of pna Fatigue 21879609 R53.83 acute Asthma 072441755 J45.90 9 feels worse Chest pain 60344550 R07. 9 ekg reassuring Pneumonia 265781168 J18. 9 nonspecifi c findings, treat empiricall y until more informatio n from labs/cxr pt reports she has taken zpack in past without issue O2 sat is reassuring 7523 Jovany Jacobs [facility] [address] [facility] [address],[place] [address] 01/21/2018 15:50:02 01/21/2018 17:01:06 Type 2 diabetes mellitus 26810096 E11.9 hasnt been getting the a1c test Essential hypertension 40614746 I10 bp was stable warned of untreated sleep apnea Diabetes mellitus 613971 09 E11.9 8002 Jovany Jacobs [facility] [address] [facility] [address],[place] [address] 01/31/2018 16:13:18 02/01/2018 08:02:06 Sensory neuropathy 23168166 G60.8 have recommende d she take ibuprofen [...] triggered this. Type 2 za betes mellitus 62081781 E11.65 neuropathy unlikely solely related to dm. labs were ordered by JOSEPH, reassured pt that they will be evaluated once recieved, though they were not ready as of today Chronic low back pain 27 8936899 M54.5 this seems the most likely explanatio n for abrupt onset of foot neuropathy , she is aware to contact her spinal specialist for evaluation of this if not improved in 2-3 days 8895 Jovany Jacobs [facility] [address] [facility] [address],[place] [address] 02/16/2018 15:47:18 02/16/2018 16:33:17 Candidiasis of mouth 55924433 B37.0 Asthma 920263362 J45.90 9 has been quiet on steroid based inhaler [id number] Jovany HarleyAbdirahman Jacobs [facility] [address] [facility] [address],[place] [address] 04/12/2018 11:38:35 04/12/2018 14:14:14 Asthma 525208111 J45.909 has been quiet on steroid based inhaler Sensory neuropathy 92455 005 G60.8 continues to have sx. suggest discussing with dr. agustin, if he doesn't believe its related to the back we will order an emg/nct to assess the source of her neuropathy . Type 2 za betes mellitus 64075531 E11.65 could be contributo ry recommend more strict diet and blood sugar monitoring daily Chronic low back pain 27 1284761 M54.5 this seems the most likely explanatio n for abrupt onset of foot neuropathy , she is aware to contact her spinal specialist for evaluation of this if not improved in 2-3 days Candidiasis of mouth 797 81973 B37.0 unable to tolerate nystatin will try troches diflucan has several interactio ns, will try to avoid for now [id number] Jovany Jacobs [facility] [address] [facility],[place] [address] 05/09/2018 13:22:12 05/09/2018 14:17:29 Sensory neuropathy 97144100 G60.8 continues to have sx, discussed with her spinal specialist who has yet to address it Weakness of hand 4188701 06 M62.81 b/l hands. intermitte nt, with intermitte nt shakes/get mors need to see neuro ? parkinson' s Ataxia R27.0 weakness of legs, legs give out intermitte ntly ? disc related, unlikely cauda equina given lack of saddle anesthesia , radiculopa thy and intermitte nt nature again will consult with neuro [id number] Jovany Jacobs [facility] [address] [facility],[place] Perez [facility] [place] [address] 06/01/2018 15:22:06 06/01/2018 19:20:09 Essential hypertension 56033960 I10 bp was stable warned of untreated sleep apnea Inflammati on of sacroiliac joint 21767425 M46.1 still very uncomforta ble gets epidurals inj and not too helpful Type 2 za betes mellitus 83411764 E11.9 a1c 7.2 and is doing well has lost almost 20lbs Insomnia 538058616 G47.0 0 trazodone is not helping will need to figure out what we can use which does not interfere with lithium Bipolar disorder 4642427 4 F31.9 reviewed lithium levels 03172 Jovany Jacobs [facility] [address] [facility], [place] [address] 07/13/2018 09:12:06 07/13/2018 10:33:07 Type 2 diabetes mellitus 01635777 E11.65 Atrophic vaginitis 66063 000 N95.2 Vaginal ulcer 36751183 N 76.5 Candidiasis of mouth 797 83698 B37.0 Essential hypertension 31365452 I10 stable [id number] Jovany Jacobs [facility] [address] [facility] [address] 08/16/2018 11:27:29 08/16/2018 12:23:33 Essential hypertension 79170967 I10 stable Type 2 za betes mellitus 09143820 E11.65 check home BS's at least daily Pancreatitis 71976304 K8 5.90 resolved [id number] Jovany Jacobs [facility] [address] [facility] [address] 09/13/2018 13:22:21 09/13/2018 14:17:46 Essential hypertension 59244375 I10 bp was stable warned of untreated sleep apnea Type 2 za betes mellitus 15521283 E11.9 has not gotten any lab for this visit will order lab now History of pancreatitis 8246225486 9107 Z87.19 had bout of mild acute pancreatit is not a drinker no gb subacute onset unknown etiology [id number] Jovany Jacobs [facility] [address] [facility],[place] [address] 11/07/2018 10:28:10 11/07/2018 11:45:31 Type 2 diabetes mellitus 34265006 E11.9 a1c is reported to be elevated at 8 despite the wgt loss Essential hypertension 80859448 I10 bp was stable warned of untreated sleep apnea Iron defic iency anemia 49623120 D50.9 believe this is all unresolved as she still behaves like iron def ( iice cubes , restless legs ) will need eval by dr castano and will need new set of lab for her eval Restless l egs syndrome 70968435 G25.81 76710 Jovany Jacobs [facility] [address] [facility],[place] [facility] [place] [address] 12/30/2018 15:16:45 12/30/2018 16:16:23 Type 2 diabetes mellitus 01601334 E11.9 a1c is 7.6 and is fairly stable Essential hypertension 72017588 I10 bp was stable warned of untreated sleep apnea Iron defic iency anemia 80142016 D50.9 believe this is all unresolved as she still behaves like iron def ( iice cubes , restless legs ) will need eval by dr castano and will need new set of lab for her eval will need continued iv iron infusions Obstructiv e sleep apnea syndrome 19900643 G47.33 not wearing cpap warned of sleep deprivatio n and medical conditons is falling asleep in car told [place] [id number] Jovany Jacobs [facility] [address] [facility], [place] [address] 02/20/2019 10:56:16 02/20/2019 14:22:41 Type 2 diabetes mellitus 43346458 E11.9 a1c was 7.6 and is fairly stable but will chk today and find out Essential hypertension 94239487 I10 bp was stable warned of untreated sleep apnea Diabetic p eripheral neuropathy 421601454 E11.40 will cont to tell her to stop drinking sugar drinks and that it only makes it worse Edema of lower leg 83684 7004 R60.0 worrisome as she has had DVT in the past will order doppler jane [id number] Jovany Jacobs [facility] [address] [facility],[place] [place] [address] 04/07/2019 15:52:23 04/07/2019 16:40:27 Type 2 diabetes mellitus 62696150 E11.9 a1c was 7.6 and is fairly stable but will chk today and find out Essential hypertension 46349913 I10 bp was stable warned of untreated sleep apnea Diabetic p eripheral neuropathy 743184677 E11.40 will cont to tell her to stop drinking sugar drinks and that it only makes it worse luckily she has a a1c of 7.3 History of pancreatitis 4695215967 9107 Z87.19 had bout of mild acute pancreatit is recently with pain in her mid epigast region this slowly went away stopped eating and drank fluids not a drinker no gb subacute onset unknown etiology 09048 Jovany Jacobs DO [facility] [address] [facility],[place] [address] 05/08/2019 11:49:45 05/08/2019 12:15:12 Colitis 13379901 K52.9 needs to have gi f/u and possible colonoscop y/upper endoscopy advised to fu or go to ER if sx worsen Diverticul itis of colon 068202763 K57.32 was treated with abx 3 weeks ago for this. one of the abx caused vomiting, but she is tolerating her abx regimen at this time Type 2 za betes mellitus 23859749 E11.65 17796 Jovany Jacobs DO [facility] [address] [facility], [place] [address] 07/31/2019 15:38:46 07/31/2019 16:17:55 Type 2 diabetes mellitus 73212761 E11.9 a1c is 7.8 and was 7.6 and is fairly stable but will need to be more careful Essential hypertension 64478141 I10 bp was stable warned of untreated sleep apnea Diabetic p eripheral neuropathy 832137115 E11.40 cont to tell her to stop drinking sugar drinks !!!!!!!!!! ! still luckily she has a a1c of 7.8 Obstructiv e sleep apnea syndrome 60544719 G47.33 not wearing cpap and GAIN WE warned of sleep deprivatio n and medical conditons is falling asleep in car told her should not be driving. Bipolar disorder 2483135 4 F31.9 reviewed lithium levels 00424 Jovany Jacobs DO [facility] [address] [facility],[place] [facility] [place] [address] 09/15/2019 13:33:38 09/15/2019 15:27:00 Exposure to communicable disease 668154119 Z20.9 metronidaz ole 500 56504 Jovany Jacobs DO [facility] [address] [facility],[place] [address] 10/31/2019 15:50:20 10/31/2019 16:45:52 Type 2 diabetes mellitus 02828264 E11.9 a1c is pending last test was 7.8 and was 7.6 and is fairly stable but will need to be more careful Iron defic iency anemia 37541547 D50.9 believe this is all unresolved as she still behaves like iron def ( iice cubes , restless legs ) will need eval by dr castano and will need new set of lab for her eval will need continued iv iron infusions Diabetic p eripheral neuropathy 748941505 E11.40 cont to tell her to stop drinking sugar drinks !!!!!!!!!! ! still luckily she has a a1c of 7.8 keep walking [id number] Jovany Jacobs [facility] [address] [facility],[place] [address] 02/14/2020 15:26:09 02/14/2020 18:08:30 [id number] Jovany Jacobs [facility] [address] [facility],[place] [address] 02/14/2020 15:36:52 02/14/2020 16:14:43 Type 2 diabetes mellitus 29271558 E11.9 A1c is stable will hold increasing metformin Essential hypertension 05439673 I10 BP elevated patient is in pain will monitor may need to adjust medication [id number] Jovany Jacobs [facility] [address] [facility],[place] [address] 07/19/2020 15:55:20 07/19/2020 16:43:43 Essential hypertension 01528790 I10 bp was stable warned of untreated sleep apnea Type 2 za betes mellitus 92202508 E11.9 aa1c is elevated to 9 from 7 state s is 10 lbs more Bipolar disorder 3554726 4 F31.9 reviewed lithium levels 13790 Jovany Jacobs [facility] [address] [facility],[place] [address] 02/18/2021 08:12:00 02/18/2021 10:55:46 Diabetic peripheral neuropathy 417135063 E11.40 still very severe and having a great deal of pain in her feet unable to walk at thispoint because of itwe will increase her gabapentin to 600mg tid total Inflammati on of sacroiliac joint 20088431 M46.1 still very uncomforta ble gets epidurals inj and not too helpful Edema of l ower extremity 107308695 R60.0 has 20 mg furosemide will use the med daily for a week to see if that helps Nausea 618621618 R11.0 75723 Jovany Jacobs, [facility] [address] [facility],[place] [address] 03/26/2021 08:14:19 03/26/2021 15:51:03 Deep venous thrombosis of lower extremity 537240262 I82.409 we will cont the eliquis for total 6 monthspt is now back doing her PT exercises and formal visits Fracture o f shaft of femur 25169448 S72.302E she will cont with the PT and currently will be temi g to the surgeon at the end of aprilof note is that the patient would absolutely benefit from a hospital bed preferably with trapeze as she is not progressin g at this time and she needs to have this now .. Urinary incontinence 165 111530 R32 44680 Jovany Jacobs [facility] [address] [facility],[place] [employer] [facility] [place] [address] 06/25/2021 08:31:43 06/30/2021 09:41:52 Diabetic peripheral neuropathy 331586052 E11.40 still very severe and having a great deal of pain in her feet unable to walk at this point because of itwe will increase her gabapentin to 600mg tid total Inflammati on of sacroiliac joint 00496269 M46.1 still very uncomforta ble gets epidurals inj and not too helpful Deep venou s thrombosis of lower extremity 683978901 I82.409 we will cont the eliquis as she is not walking Bipolar disorder 0321677 4 F31.9 she has been stable Type 2 za betes mellitus 40124762 E11.9 she has a need to get her lab done Essential hypertension 45398653 I10 bp was stable warned of untreated sleep apnea [id number] Jovany Jacobs [facility] [address] [facility],[place] [address] 10/10/2021 09:51:33 10/14/2021 12:07:19 Abscess 245061961 L02.91 resolved Type 2 za betes mellitus 35927786 E11.9 discussed when and how much insulin to takewill let MB know [id number] Jovany Jacobs [facility] [address] [facility] [address] 11/11/2021 08:23:52 11/14/2021 08:44:35 Type 2 diabetes mellitus 83626265 E11.9 she has a need to get her lab done Essential hypertension 07884064 I10 bp was stable warned her again of untreated sleep apnea last bp was around 118 / 70 Tinea corporis 07767127 B35.4 [id number] Jovany Jacobs [facility] [address] [facility], [place] [address] 11/25/2021 09:17:00 11/25/2021 10:48:52 Benign paroxysmal positional vertigo 983958191 H81.12 will fu with update on wednesday 19834 GUI LALA [facility] [address] [facility], [place] [address] 01/02/2022 10:42:42 01/05/2022 11:09:44 Anxiety 50088304 F41.1 will f/u with medication adjustment will increase prozac to 40 mg and change Klonapin to 1 mg TID Transient cerebral ischemia 038802158 G45.8 will set up with an open MRIwill determine if Kenyon has a sharon lift 19785 Jovany Jacobs [facility] [address] [facility],[place] [address] 06/05/2022 11:22:55 06/09/2022 08:49:37 Menopause 338295636 N95.1 will start paxil for the menopause Diabetic p eripheral neuropathy 508620116 E11.41 will change out to lyrica from gabapentin Type 2 za betes mellitus 12483891 E11.9 discussed when and how much insulin to takewill let MB know Anxiety 79430162 F41.1 needs refill Edema of l ower extremity 675471838 R60.0 needs refill [id number] Jovany Jacobs [facility] [address] [facility],[place] [address] 06/15/2022 14:20:54 06/15/2022 15:34:02 Transient cerebral ischemia 625406028 G45.8 seems to be stable Type 2 za betes mellitus 69659536 E11.42 she has a need to get her lab done Essential hypertension 32980531 I10 bp was stable warned her again of untreated sleep apnea last bp was around 118 / 70 Inflammati on of sacroiliac joint 22148963 M46.1 still very uncomforta ble gets epidurals inj and not too helpful Bipolar disorder 3352444 4 F31.9 she has been stable Deep venou s thrombosis of lower extremity 113249901 I82.409 we will cont the eliquis as she is not walking Postoperat juan pablo wound infection 07130085 T81.41XS area has healed and is no longer drainingwi ll be cont to have her monitor and is working hard on [place] 94516 Jovany Jacbos [facility] [address] [facility],[place] [address] 08/28/2022 13:58:20 08/28/2022 15:22:03 Type 2 diabetes mellitus 65105984 E11.42 lab [id number] is still very high at 10 will try to get her on ozempic and send her to dr Jeffers Edema of l ower extremity 437282002 R60.0 has 20 mg furosemide and this has not helped so stopped Peripheral neuropathy due to type 2 diabetes mellitus 8843153855 107 E11.42 about the same 36786 Jovany Jacobs DO [facility] [address] [facility] [address] 12/04/2022 13:51:36 12/04/2022 14:47:49 Peripheral neuropathy due to type 2 diabetes mellitus 7209740741 107 E11.42 about the same Type 2 za betes mellitus 63710300 E11.42 lab not done not sure what sugars are qxcvynu2j is still very high at 10 will try to get her on ozempic and send her to dr Jeffers [address]34[address] Jovany Jacobs [facility] [address] [facility],[place] [address] 03/17/2023 14:38:31 03/17/2023 16:33:23 Depressive disorder 71545932 F32.A her e for rechk and is about the same Anxiety 21694829 F41.1 will f/u with medication adjustment will increase prozac to 40 mg and change Klonapin to 1 mg TID Asthma 959561850 J45.90 9 seems stable Bipolar disorder 5276165 4 F31.9 she has been stable aripiprazo le Essential hypertension 87502941 I10 bp was stable warned her again of untreated sleep apnea last bp was around 118 / 70 Type 2 za betes mellitus 07645761 E11.42 again , lab not done not sure what sugars are oarolwe8e was still very high at 10 will try to get her on mounjaro if ok with dr jeffers [id number] Jovany Jacobs [facility] [address] [facility],[place] [address] 07/14/2023 08:53:38 07/16/2023 08:59:16 Type 2 diabetes mellitus 89899001 E11.40 again , lab not done not sure what sugars are eziajk4p was doing better at 7.8 Inflammati on of sacroiliac joint 63809936 M46.1 still very uncomforta ble gets epidurals inj and not too helpful Bipolar disorder 5018182 4 F31.9 she has been stable aripiprazo le Deep venou s thrombosis of lower extremity 549728812 I82.409 we will cont the eliquis as she is not walking Essential hypertension 27508556 I10 bp was stable warned her again of untreated sleep apnea last bp was around 118 / 70 Asthma 462567266 J45.90 9 seems stable Neurogenic urinary bladder 304716463 N31.9 she still has an issue with bladder has no warning and she is having incontinen ce 387141 Jovany Jacobs [facility] [address] [facility],[place] [address] 10/26/2023 14:52:41 10/26/2023 16:41:22 Allergic asthma 710839798 J45.20 will set up with alt to the riya brito for better allergy asthma control for her cough Cellulitis of buttock 44 978471 L03.317 will set up with alternativ e for Ruptured a bdominal aortic aneurysm 39474388 I71.33 the patient will be following up with the surgeon on Wednesday; will see Dr. Morataya Menopausal flushing 1983 08440 N95.1 agreed to f/u veozah as an alternativ e to therapy for the paxilgiven free sample in office Insomnia 187941492 G47.0 9 will set up for a [place] [id number] Jovany Jacobs DO [facility] [address] [facility], [place] [address] 12/10/2023 14:47:34 12/10/2023 15:39:44 Depression screening 796728878 Z13.31 SCREENING NEGATIVE Essential hypertension 44727764 I10 bp was stable warned her again of untreated sleep apnea last bp was around 118 / 70 Type 2 za betes mellitus 14465035 E11.40 again , lab not done not sure what sugars are doing will order a1ca1c was doing better at 7.8 Instabilit y of joint of left knee 2550593894 964652 M25.362 severe pain and joint instabilit y [id number] Jovany Jacobs DO [facility] [address] [facility] [place] [address] 03/15/2024 14:49:29 03/15/2024 15:57:02 Asthma 382265463 J45.909 seems stable Type 2 za betes mellitus 44201865 E11.40 a1c is 10.6 will be seeing the endo diabetes spec next weekneeds a sliding scale and needs to have the dexcom Peripheral neuropathy due to type 2 diabetes mellitus 9058977896 107 E11.42 about the same Menopausal flushing 1983 13838 N95.1 Essential hypertension 52860521 I10 bp was stable warned her again of untreated sleep apnea last bp was around 118 / 70 [id number] DO [facility] [address] [facility],[place] [address] 06/19/2024 14:56:43 06/19/2024 15:37:21 Allergic asthma 092111936 J45.20 as below Asthma 116881796 J45.90 9 seems stablebit still smokes Nummular eczema 57188837 L30.0 Diabetic p eripheral neuropathy 256834855 E11.41 [id number] Jovany Jacobs [facility] [address] [facility] [place] [address] 09/19/2024 14:47:30 09/19/2024 15:45:46 Screening for cardiovascular system disease 345989922 Z13.6 will need further lab Screening for malignant neoplasm of colon 481407829 Z12.11 currently not abole to do colonoscop y Screening for osteoporosis 224123733 Z13.820 Screening mammography 24 950359 Z12.31 Asthma 418633507 J45.90 9 seems stablebut still smokes Essential hypertension 22741940 I10 bp was stable warned her again of untreated sleep apnea last bp was around 118 / 70 Type 2 za betes mellitus 26755876 E11.40 a1c is 10.6 will be seeing the endo diabetes spec next weekneeds a sliding scale and needs to have the dexcom General ex amination of patient 400797407 Z00.01 04374156 still trying to walk able to stand better now unwilling to give upwill need lab Broken skin 772120594 R2 3.8 4708213 [id number] Jovany Jacobs [facility] [address] [facility],[place] [address] 10/18/2024 14:48:24 10/18/2024 15:53:49 Depression screening 165742527 Z13.31 negative Type 2 za betes mellitus 72672143 E11.40 discussed when and how much insulin to takewill let MB know Essential hypertension 85944105 I10 BP is fine Peripheral neuropathy due to type 2 diabetes mellitus 0832992751 107 E11.42 no changes Acute deep venous thrombosis of left femoral vein 6673890067 76236 I82.412 71410075 on eliquiswil l probably need bridge with lovenox for dental procedurew ill consult with JOSEPH Dependence on wheel chair 053760567 Z99.3 851964 needs order for hand rails [id number] Jovany Jacobs [facility] [address] [facility] [place] [address] 11/27/2024 14:09:51 11/27/2024 15:10:51 Asthma 294567477 J45.909 seems stablebut still smokes Essential hypertension 99857682 I10 bp was stable warned her again of untreated sleep apnea last bp was around 118 / 70 Type 2 za betes mellitus 31476839 E11.40 a1c is 7.4 doing well much better will be seeing the endo diabetes spec next weekneeds a sliding scale and needs to have the dexcom Depression screening 171 742773 Z13.31 SCREENING NEGATIVE Edema of l ower extremity 344658037 R60.0 has 20 mg furosemide and this has not helped so stopped Acute deep venous thrombosis of right femoral vein 3009288486 07547 I82.411 26080325 507196 Jovany Jacobs [facility] [address] [facility] [place] [address] 02/19/2025 11:16:24 02/20/2025 08:23:42 Diabetic peripheral neuropathy 700073589 E11.41 still trouboled we weill jesse if need dulox dose call in 3 weeks Restless l egs syndrome 36870752 G25.81 30722553 we will switch to ropinirol will call in 3 weeks Bilateral spasm of muscle of calves 9731744849 8738606 M62.100 7370123 needed to change to non narc will try tiznidine Health Concerns Section Related Observation LastModified by Organization Detai ls LastModified Time None Recorded Concern Status LastModified by Organization Details LastModified Time None Recorded Advance Directives Directive None Recorded Payers Insurance Date Sequence Insurance Name Policy Number Policy [place] Covered Member ID [place] Member ID Guarantor Name 10/18/2024 1 [facility] (MEDICARE REPLACEMENT/A DVANTAGE - PPO) [id number] [id number] [place] 06/20/2019 2 UNSPECIFIED REMIT PAYOR [place] 01/03/2019 3 [place] [id number] [place] [id number] [place] Harley Hasmukh 02/19/2025 1 [place] [id number] [place] [id number] [place] Har[place] Hasmukh 06/23/2023 1 [place] [id number] Ty Noe [id number] [place] Har[place] Hasmukh 10/18/2024 2 [place] [employer] Har[place] Hasmukh [id number] [place] Har[place] Hasmukh 06/20/2019 2 UNSPECIFIED REMIT PAYOR [place] Har[place] Hasmukh 02/19/2025 3 [place] Har[place] Hasmukh [id number] [place] Har[place] Hasmukh 02/19/2025 2 [facility] (MEDICARE REPLACEMENT/A DVANTAGE - PPO) [place] Har[place] Hasmukh [id number] [place] Har[place] Hasmukh Notes Date Note Type Note Provider Name and Address Organization Details Recorded Time 5 text/htm l ROS as noted in the HPI is walking bettr uses a walkerbreathing is not goodis now off the pain meds had stopped after a 4 day taperunderwent 3 weeks of withdrawal Jovany Jacobs, DO [address] [place] [address], [place], [address], [facility] 06/19/2024 15:33:26 5 text/htm l Care Management - DiabetesReported by PatientHPIFor self care, patient reportsseeing eye doctor yearly for dilated eye exam,checking feet regularly,normal range of home blood sugars (in the low 100s), andno side effects from medications. For associated symptoms, patient reportssymptoms are usually well controlled,no fatigue,no dizziness,no excessive sweating,no headaches,no confusion,no increased thirst,no increased appetite,no increased urination,no blurred vision,no numbness of feet, andno calluses on feet. Care Management - HypertensionReported by PatientHPIFor self care, patient reportsnot under emotional stress. For severity, patient reportssymptoms are improvinganddoes not interfere with daily activities. For associated symptoms, patient reportsno dizziness,no lightheadedness,no chest pain,no shortness of breath,no palpitations,no edema,no calf muscle cramps,no blurred vision,no confusion,no headaches, andno fatigue. Medicare Annual Wellness VisitReported by PatientSocial/Behavioral HistoryFor diet and nutrition, patient reportshealthy diet. For fracture risk, patient reportsno history of fractures,no recent explained fracture,no sudden unexplained fractures, andno previous musculoskeletal injuries. For physical activity, patient reportsexercises on a regular basis,recent increase in physical activity, andgood physical condition.Mental Status:For depression risk, patient reportsnever feels sad, empty, or tearful,no loss of interest in activities,no significant changes in weight,no sleep disturbances or insomnia,no agitation,no loss of energy,no feelings of worthlessness or guilt,no thoughts of suicide,no history of depression, andno history of mood disorders. For orientation, patient reportsno disorientation to time,no disorientation to date, andno disorientation to place. For concentration and memory, patient reportsno decreased concentrating ability,no memory lapses or loss, anddoes not forget words. For speech/motor difficulties, patient reportsno speech difficulties,no difficulty expressing formulated concepts,no difficulty with fine manipulative tasks,no difficulty writing/copying,no slowed reaction time, anddoes not knock things over when trying to pick them up.Functional AbilityFor hearing, patient reportsno loss of hearing. For vision, patient reportsno vision problems. For activities of daily living, patient reportsable to bathe with limited or no assistance,able to contol urination and bowels,able to dress with limited or no assistance,able to feed self with limited or no assistance,able to get out of chair or bed with limited or no assistance,able to groom with limited or no assistance, andable to toilet with limited or no assistance. For instrumental activities of daily living, patient reportsable to do house work with limited or no assistance,able to grocery shop with limited or no assistance,able to manage medications with limited or no assistance,able to manage money with limited or no assistance,able to prepare meals with limited or no assistance, andable to use the phone with limited or no assistance. For falls risk assessment, patient reportsno frequent falls while walking,no fall in the past year,no fall since last visit, andno dizziness/vertigo. For home safety, patient reportsno unsafe jack hazzards,no unsafe stairs,no unsafe gas appliances,working smoke/co detectors,wears protective head gear for biking/high velocity,use of seatbelts,practicing 'safer sex',no vision or hearing loss while driving,no fire arms,has hand bars in the bathroom/shower, andgood lighting in the home.ROS as noted in the [facility] medicare wllness check up reviewed lab in detailreviewed meds in detail Jovany Jacobs, DO [address] [place], [address], [facility] 09/19/2024 15:36:54 5 text/htm l ROS as noted in the [facility] TCM [facility] the patient had a blood clot in L distal femoral veinthe patient was started on eliquis previouslywill continue with the eliquis will need recheck US to monitor clotwill submit to [facility] to compare needs toiler hand rails, order submitted for patient needs to get two teeth pulled, needs clearancewill probably need to bridge from eliquis due to current clot will review with MB otherwise no other changesmed list reviewed GUI LALA [address] [facility], [place], [address], [facility] 10/18/2024 15:50:29 5 text/htm l Care Management - HypertensionReported by Patienthere for rechk and relates that the lovenox is very painful and leaving lumps Care Management - DiabetesReported by PatientHPIFor self care, patient reportsseeing eye doctor yearly for dilated eye exam,checking feet regularly,normal range of home blood sugars (in the low 100s), andno side effects from medications. For associated symptoms, patient reportssymptoms are usually well controlled,no fatigue,no dizziness,no excessive sweating,no headaches,no confusion,no increased thirst,no increased appetite,no increased urination,no blurred vision,no numbness of feet, andno calluses on feet. Care Management - AsthmaReported by PatientHPIFor severity, patient reportsimproving,does not interfere with daily activities,does not disturb sleep, anddoes not cause nighttime awakening. For associated symptoms, patient reportsno fever,no fatigue,no irritability,no cough,normal appetite, andno change in productivity.ROS as noted in the HPI has been on lovenox for over 2 months no furtherdvtshe has falied eliquis and is now stable on the lovenox for 2 months Jovany Jacobs, DO [address] [place], [address], [facility] 11/27/2024 14:55:38 5 text/htm l ROS as noted in the HPI patient is evaluated via tele/video assessment per patient consent relates the pramipexole is not helping the restless legsshe is being weaned off the clonzepam was given hydroxyzine for the withdrawalrelates she is very uncomfortable but is walking a great deal morestates at PT she went 32 feet 8 timesshe is down to 5mg bid and then will be decreased to qd later this weekThe patient is participating in this appointment via telemedicine communication with a phone call (audio) only.The patient consents to use of these platforms in place of an in-person appointment due to either patient being acutely ill (being in office would put our staff and our other patients at risk) or unable to make an in-person appointment due to either lack of transportation, severe medical condition, immunocompromised, etc.The appointment took place over a phone call (audio) due to patient's inability to access or use an audio and visual platform. Jovany Jacosb, DO [address] [place], [address], [facility] 02/19/2025 15:13:23 OBGyn Episode No OBEpisode recorded.
--- OUTSIDE RECORDS SUMMARY | 2025-03-06 14:53 | XMS_ITS | Encounter Summary ---
Author Organization [facility] Address [address] [place] [id number] Phone Care Team Providers Care Peoplesoft Consultant Name Role Phone Mansoor, Jovany A DO Primary Care Provider [phone] Bigda, Jovany A DO Unavailable Bigda, Jovany A DO Unavailable Bigda, Jovany A DO Primary Care Provider [phone] Encounter Details Date Type Department Care Team (Late st Contact Info) Description 04/29/2020 Procedure Pass [facility], [address] [address] Social History Tobacco Use Types Packs/Day Years Used Date Smoking Tobacco: Every Day Smokeless Tobacco: Never Comments Unknown Sex and Gender Information Value Date Recorded Sex Assigned at Not on file Legal Sex Female 7:35 PM EST Gender Identity Not on file Sexual Orientation Not on file documented as of this encounter Last Filed Vital Signs Vital Sign Reading Time Taken Comments Blood Pressure - - Pulse - - Temperature - - Respiratory Rate - - Oxygen Saturation - - Inhaled Oxygen Concentration - - Weight 103.4 kg (228 lb) 04/30/2020 7:47 PM EST Height 152.4 cm (5') 04/30/2020 7:47 PM EST Body Mass Index 44.53 04/30/2020 7:47 PM EST documented in this encounter Plan of Treatment Upcoming Encounters Date Type Department Care Team (Late st Contact Info) Description 04/16/2025 2:10 PM EST Office Visit [facility] [address] [address] Renata Walker, TUNNEL ELASTIC OPERATOR CHAINSTITCH [address] [facility], [address] [place] [phone] 04/20/2025 9:00 AM EST Nutrition [facility] [address] [place] [address] Tanisha Gamble, HEATHN [address] [facility], [address] [place] [phone] documented as of this encounter Visit Diagnoses Not on filedocumented in this encounter Additional Health Concerns 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 per Infection Control as part of historical infection status reconciliation 06/10/2011 06/10/2011 08/10/19 1:22 AM EDT documented as of this encounter Care Teams Peoplesoft Consultant Relationship Specialty Start Date End Date Jovany Max DO PCP - General Internal Medicine 06/17/18 09/19/24 Jovany Max DO [address] [place] [address] PCP - General Internal Medicine 09/20/24 Jovany Max DO [address] [place] [address] Insurance Assigned Provider 09/24/18 05/09/21 Jovany Max DO [address] [place] [address] Insurance Assigned Provider 08/28/23 documented as of this encounter Additional Source Comments The information contained in this document represents components of the legal health record. It is not the complete legal health record.[facility]
--- OUTSIDE RECORDS SUMMARY | 2025-03-06 14:53 | XMS_ITS | Clinical Summary ---
Author Organization [facility] Address [address] [place] [phone] Phone Care Team Providers Care Geodetic Survey Director Name Role Phone Jovany Max DO Unavailable José AntonioJovany courtney DO Primary Care Provider [phone] Allergies Active Allergy Reactions Criticality Noted Date Comments Adhesive Rash Medium 04/24/2012 Adhesive Tape-Silicones Rash Low 02/02/2017 Cat's Claw (Uncaria Tomentosa) 10/17 Dog Dander 10/18/2019 Hay Fever And Allergy Relief 023 Mold Unknown 02/02/2017 Medications gabapentin (NEURONTIN) 300 MG capsuleIndicat ions:one daily Take 600 mg by mouth 3 (three) times a day. 900mg in the morning 600mg in the afternoon and 900mg at night Indications: one daily Active albuterol 90 mcg/actuation inhaler 2 puffs as needed Inhalation every 4 hrs Active ARIPiprazole (ABILIFY) 30 MG tablet 1 tablet Orally Once a day Active pramipexole (MIRAPEX) 0.5 MG tablet 0.5 mg 3 (three) times a day. Active spironolactone (ALDACTONE) 50 MG tablet Take 25 mg by mouth daily. Active clonazePAM (KLONOPIN) 1 MG tablet Take 1 mg by mouth 3 (three) times a day as needed for anxiety. Active multivit-min/i yusuf/folic/hrb1 86 (HAIR, SKIN AND NAILS ADVANCED ORAL) Take 2 capsules by mouth daily. Active acetaminophen (TYLENOL) 325 mg tablet Take 650 mg by mouth daily. Active ascorbic acid, vitamin C, (ASCORBIC ACID WITH JORDAN HIPS) 500 MG tablet Take 500 mg by mouth daily. Active PARoxetine (PAXIL) 10 MG tablet Take 10 mg by mouth daily. 3 Active baclofen (LIORESAL) 20 MG tablet Take 20 mg by mouth 3 (three) times a day. 4 Active metFORMIN (GLUCOPHAGE) 1000 MG tabletIndicati ons:Type 2 diabetes mellitus with diabetic polyneuropathy , with long-term current use of insulin Take 1 tablet (1,000 mg total) by mouth 2 (two) times a day. 1 tab(s) p.o. Twice a day 180 tablet 3 4 Active linaGLIPtin (TRADJENTA) 5 mg TabIndications :Type 2 diabetes mellitus with diabetic polyneuropathy , with long-term current use of insulin Take 1 tablet (5 mg total) by mouth daily. 90 tablet 1 4 Active ONETOUCH VERIO Strp stripsIndicati ons:Type 2 diabetes mellitus with diabetic polyneuropathy , with long-term current use of insulin 1 each by Miscellaneous route 2 (two) times a day. 200 strip 3 4 Active insulin pen needles, disposable, 31 gauge x 08/06 NdleIndication s:Type 2 diabetes mellitus with diabetic polyneuropathy , with long-term current use of insulin Use to inject insulin up to 4 times daily 400 each 3 4 Active meclizine (ANTIVERT) 25 mg tablet Take 25 mg by mouth 3 (three) times a day as needed. Active zafirlukast (ACCOLATE) 20 MG tablet Take 20 mg by mouth 2 (two) times a day. Active suvorexant (BELSOMRA) 10 mg tablet Take 10 mg by mouth nightly at bedtime. Take within 30 minutes of going to bed. Active estradioL (VIVELLE-DOT) 0.0375 mg/[address] 1 patch onto the skin 2 (two) times a week. Active TRESIBA FLEXTOUCH U-200 200 unit/mL (3 mL) InPn injection penIndications :Type 2 diabetes mellitus with diabetic polyneuropathy , with long-term current use of insulin Inject 104 units once daily 45 mL 3 5 Active DEXCOM G7 SENSOR DeviIndication s:Type 2 diabetes mellitus with diabetic polyneuropathy , with long-term current use of insulin Use to continuously monitor blood sugars, wear on the back of the upper arm, change every 10 days 3 each 5 Active estradioL (VIVELLE-DOT) 0.0375 mg/[address] 1 patch onto the skin 2 (two) times a week. Active FARXIGA 5 mg tabletIndicati ons:Type 2 diabetes mellitus with diabetic polyneuropathy , with long-term current use of insulin Take 1 tablet (5 mg total) by mouth daily. 30 tablet 5 5 Active LYUMJETomas KWIKPEN U-100 INSULIN 100 unit/mL InPnIndication s:Type 2 diabetes mellitus with diabetic polyneuropathy , with long-term current use of insulin Inject up to three times/day per sliding scale for corrections, doses must be given 4 hours apart. Take 4-14 units per sliding scale max TDD 42 units, dx E11.42, 45 mL 3 5 Active Active Problems Patient Care Coordination No te Formatting of this note migh t be different from the original. Height 151 cm no shoes 02/06/19 Problem Noted Date Diagnosed Date Type 2 diabetes mellitus wit h diabetic polyneuropathy, with long-term current use of insulin 10/08/2022 Assessment & Plan (01/13/2025 9:08 PM EDT): CGM data reviewed, pattern of rise in sugars overnight which Janna attributes to occasional snacking at night Janna continues on basal/bolus insulin regimen, taking 4 daily insulin injections, and is at high risk for hypoglycemia, CGM is medically necessary for Janna, will allow most information for safe insulin dosing adjustments Currently on DPP4i, metformin, low dose SGLT2i and bolus/basal insulin Does have a frequent history of yeast infections, even when not taking SGLT2i, we have discussed risks in the past, Janna would like to remain on this, she feels that the yeast infections are mostly due to when using Purewick, we discussed holding SGLT2i if she will be using the Purewick or on antibiotics which Janna also reports increases her risk for yeast infections Janna is interested in GLP1, though we discussed this isn't an option for her given history of pancreatitis of unknown cause, discussed meeting with assistant health educator to discuss diet to see if that can help with weight loss goals No medication adjustments made today, Janna is encouraged to work on reducing snacking after dinner to see if this helps with fasting BG, if not can consider increasing basal insulin if rise is gradual overnight, or increasing sliding scale at dinner, if blood sugar is elevated after the evening meal Encouraged efforts at balanced, mindful eating Advised to contact office with any questions or concerns, otherwise we will follow up in 3 months, Janna will talk with Tanisha Gamble next week Assessment & Plan (09/22/2024 3:38 PM EDT): CGM data reviewed much improved control Janna continues on basal/bolus insulin regimen, taking 4 daily insulin injections, and is at high risk for hypoglycemia, CGM is medically necessary for Janna, will allow most information for safe insulin dosing adjustments Currently on DPP4i, metformin, low dose SGLT2i and bolus/basal insulin Does have a frequent history of yeast infections, even when not taking SGLT2i, we discussed risks, Janna would like to remain on this, we discussed checking in in a month to see how it is going, if having another yeast infection should consider discontinuing, this is what I would recommend and we reviewed this Discussed giving more insulin for supper and higher carb meals when Janna elects not to have a salad for the meal, she is agreeable to try this No other medication adjustments made today Encouraged efforts at balanced, mindful eating Advised to contact office with any questions or concerns, otherwise we will follow up in 3 months Assessment & Plan (06/17/2024 10:43 AM EST): CGM data reviewed and indicates higher than desired patterns Janna continues on basal/bolus insulin regimen, taking 4 daily insulin injections, and is at high risk for hypoglycemia, CGM is medically necessary for Janna, will allow most information for safe insulin dosing adjustments Currently on DPP4i, metformin, and bolus/basal insulin Not currently on SGLT2i and unclear why this was stopped, either related to insurance or labwork Janna had done in the fall, and could be leading to more resistant blood sugar patterns Consulted with Dr. Knutson, , anion gap of 24 without any symptoms of DKA is not indication enough to discontinue therapy, can restart but should have follow up labwork 7-10 days after initiation of initial dosing, will send to pharmacy and mail labwork to Janna. Reviewed all this with Janna by phone call after our visit, reviewed symptoms of DKA and risk with SGTL2i therapy, Janna expressed understanding, had no further questions, and was agreeable to plan No other medication adjustments made today, but Janna is encouraged to reach out with continue hyperglycemia after resuming SGLT2 therapy Janna has had trouble with CGM data sharing, we discussed the importance of staying signed into the dexcom lucero to allow for data to be linked to her account Encouraged efforts at balanced, mindful eating Advised to contact office with any questions or concerns, otherwise we will follow up in 3 months Assessment & Plan (04/18/2024 3:51 PM EST): Reporting blood sugars are elevated, but concerning for significant drop in sugars overnight CGM has been very useful in the past, but there recently has been difficulty getting this covered, we will try submitting order through DME supplier Janna continues on basal/bolus insulin regimen, taking 4 daily insulin injections, and is at high risk for hypoglycemia, CGM is medically necessary for Janna, will allow most information for safe insulin dosing adjustments Currently on DPP4i, SGLT2i, metformin, and bolus/basal insulin Adjustments made to sliding scale insulin today as noted below, we discussed taking 2 units less at lunch time since this generally is a diabetes territory manager meal, we also will preventatively decrease Tresiba dosing to 95 units to help reduce risk of overnight hypoglycemia Encouraged efforts at balanced, mindful eating Advised to contact office with any questions or concerns, otherwise we will follow up in 2 months New sliding scale Blood Sugar Insulin 100-150 4 151-200 6 201-250 8 251-300 10 301-350 12 >350 14 Assessment & Plan (07/28/2023 8:33 PM EST): CGM indicates improving patterns, more TIR, less TAR2 Janna has appreciated CGM, obtaining CGM has been a concern in the past few weeks, we discussed trying a DME supplier instead of a local pharmacy to see if this helps provide better coverage for CGM, Janna is agreeable to trying a DME supplier Currently on DPP4i, SGLT2i, metformin, and basal insulin, tolerating these well No adjustments today, there is no recent CGM data to review due to issues obtaining CGM, Janna is near more conservative goal of >50% TIR with no hypgoglycemia given comorbidities Outside labs reviewed, GFR continues to be in optimal range since Farxiga initiation, improvement in control since optimizing dose Concern with urinary symptoms, we discussed trialing a decrease in dosage or holding SGLT2i to see if there is improvement in symptoms, Janna does not wish to do this at this time since control has improved, encouraged reaching out if symptoms do not improve or worsen Encouraged efforts at balanced, mindful eating and making slow Up to date on annual foot exam, due for eye exam, encourage scheduling this. Advised to contact office with any questions or concerns, otherwise we will follow up in 6 months Assessment & Plan (04/13/2023 5:36 PM EST): CGM indicates improving patterns, more TIR, less TAR2 Janna has appreciated CGM Currently on DPP4i, SGLT2i, metformin, and basal insulin, tolerating these well Briefly discussed GLP-1 agonists and GIP/GLP-1 receptor agonist, Mounjaro, would not recommend use with history of pancreatitis. Outside labs reviewed, GFR in optimal range since Farxiga initiation, we discussed there is room for optimization of dosage but Janna feels there are adjustments that can be made to diet so would like to work on this for a couple weeks Advised that we can check in with Janna in a couple weeks to see how things are going Weight loss is a concern of Janna's discussed SGLT2i optimization may help in losing weight, but unfortunately injectables that also aid with weight loss are not an option d/t history of pancreatitis Encouraged efforts at balanced, mindful eating and making slow, gradual lifestyle adjustments Up to date on annual foot exam, due for eye exam, encouraged scheduling this. Opting out from receiving annual flu vaccine, we discussed why it is the recommendation to receive the vaccine with diabetes. Advised to contact office with any questions or concerns, otherwise we will follow up in 3 months Assessment & Plan (01/14/2023 9:58 AM EDT): CGM indicates almost all time spent > 180, Janna has appreciated CGM but is discouraged by the readings Currently on DPP4i, metformin, and basal insulin, tolerating these well Basal insulin has been steadily increased both by patient and by our recommendations, latest increase seems to have improved patterns over the past week Discussed various medication options, unable to use GLP-1 agonists/GIP and GLP-1 receptor agonist, Mounjaro with history of pancreatitis. Discussed SGLT2i action, side effects, risks and important considerations, Janna remains well hydrated through the day. Janna is willing to try SGLT2i which will also offer renal and some cardiovascular benefit Advised that Janna will need to have labs done to check in on renal labs after 3-4 weeks starting SGLT2i Outside labs reviewed before initiation, GFR in optimal range Could consider repaglinide or prandial insulin in the future if SGLT2i doesn't help prandial elevations, also discussed increasing basal insulin if patterns remain elevated overall Encouraged efforts at balanced, mindful eating and making slow, gradual lifestyle adjustments Advised to contact office with any questions or concerns, otherwise we will follow up in 3 months Assessment & Plan (10/20/2022 7:47 PM EDT): Janna has been having worsening control and was referred to [facility] to discuss medication options CGM indicates almost all time spent > 180, Janna appreciated CGM and would like to have this ordered. We discussed that we can try to have this dispensed by the pharmacy, but if insurance does not allow this, then we will have to obtain this through a DME supplier Currently on DPP4i, metformin, and basal insulin, tolerating these well Basal insulin was recently decreased, unclear why With limited blood sugar data since the decrease, recommend only 20% increase in basal insulin Advised further medication adjustments and discussion can be done based off CGM evaluation Discussed various medication options, discuss GLP-1 agonists and mentioned new GIP and GLP-1 receptor agonist, Mounjaro, though we did discuss concern with starting this given review of PCP note indicates there has been a history of pancreatitis. Janna would like to avoid this if there is any potential for an increased risk of pancreatitis Given mild prandial rises, would for now recommend increasing basal insulin to help bring blood sugar patterns down overall Encouraged efforts at balanced, mindful eating and making slow, gradual lifestyle adjustments Advised to contact office with any questions or concerns, otherwise we will follow up in 3 months Assessment & Plan (10/08/2022 1:47 PM EDT): Janna has been having worsening control and was referred to [facility] to discuss medication options With limited glycemic data, difficult to assess efficacy of current diabetes regimen, though Janna seems to be above range with all fingersticks We discussed the value in doing a CGM trial, Janna is agreeable to an unblinded CGM trial Currently on DPP4i, metformin, and basal insulin, tolerating these well Encourage increase in basal insulin given all fingersticks were elevated, advise further medication adjustments and discussion can be done based off CGM evaluation Discussed various medication options, discuss GLP-1 agonists and mentioned new GIP and GLP-1 receptor agonist, Mounjaro, concern with starting this given review of PCP note indicates there has been a history of pancreatitis. Other options to consider include SGLT2 inhibitors. These will be the most robust medications that will lead to the greatest glucose reduction, but more glycemic information is needed Blood pressure in good range today. Encouraged efforts at balanced, mindful eating and making slow, gradual lifestyle adjustments Encouraged efforts at increasing physical activity as tolerated Advised to contact office with any questions or concerns, otherwise we will follow up in 2 weeks for CGM evaluation via telephone visit CGM Trial Type of Diabetes: Diabetes mellitus Type 2 Assessment/HPI: Janna is here today for CGM trial. Procedures: Glucose Monitoring: Type of Sensor: Dexcom G7 Instruction: Patient Instructed on:, Calibrations, When to test BS, Troubleshooting, What to expect with the sensor, Patient instructed to remove sensor if redness, pain or bleeding occurs. . Insertion Site Selected: arm Site Prep: Insertion site wiped with alcohol. Insertion: completed, area looks good, no redness, no bleeding. Essential hypertension 10/08/2022 Assessment & Plan (01/13/2025 9:09 PM EDT): Blood pressure borderline BP Goal < 130/80 On diuretic Assessment & Plan (09/22/2024 3:35 PM EDT): Blood pressure in good range today BP Goal < 130/80 On diuretic Assessment & Plan (06/17/2024 10:45 AM EST): Blood pressure in good range today BP Goal < 130/80 On diuretic Assessment & Plan (04/18/2024 3:52 PM EST): Blood pressure historically in good range today BP Goal < 130/80 On diuretic, SGLT2i likely offering modest BP reduction Assessment & Plan (07/28/2023 8:35 PM EST): Blood pressure in good range today BP Goal < 130/80 On diuretic, SGLT2i likely offering modest BP reduction Assessment & Plan (04/13/2023 5:34 PM EST): Blood pressure in good range today BP Goal < 130/80 On diuretic, SGLT2i likely offering modest BP reduction Assessment & Plan (01/14/2023 9:25 AM EDT): BP Goal < 130/80 On diuretic, SGLT2i may aid in blood pressure control Assessment & Plan (10/20/2022 7:49 PM EDT): BP Goal < 130/80 On diuretic Assessment & Plan (10/08/2022 1:49 PM EDT): Blood pressure in good range today BP Goal < 130/80 On diuretic Anxiety 10/08/2022 Bipolar disorder 10/08/2022 History of pancreatitis 10/08/2022 Iron deficiency anemia 11/21/2018 Morbid obesity with BMI of 45.0-49.9, adult 05/25 Myalgia 04/21/2018 Sacroiliitis, not elsewhere classified 7 Chronic pain disorder 03/30/2017 Trochanteric bursitis of both hips 03/30/2017 Class 2 obesity due to exces s calories without serious comorbidity in adult 03/30/2017 Chronic low back pain 04/18/2012 Overview (07/14/2014): Chronic low back pain Encounters Date Type Department Care Team Description 01/17/2025 9:00 AM EDT Nutrition [facility] [address] [place] [address] [place] [address] Tanisha Gamble, HEATHN Type 2 diabetes mellitus with diabetic polyneuropathy, with long-term current use of insulin (Primary Dx) 01/11/2025 2:10 PM EDT Office Visit [facility] [address] [place] [address] Renata Walker, PAPER BAG MACHINE OPERATOR Type 2 diabetes mellitus with diabetic polyneuropathy, with long-term current use of insulin (Primary Dx); Essential hypertension 12/19/2024 Telephone [facility] [address] [place] [address] Lisha Long MA CLINICAL NOTES from Last 3 Months Immunizations Immunization Administration Dates Next Due Unknown Vaccine Or Immune Globulin 09/05/2010 Family History Medical History Relation Comments CV disease Father 2 Diabetes mellitus Father 2 Hypertension Father 2 Relation Status Comments Father 1 Alive Father 2 Social History Tobacco Use Types Packs/Day Years Used Date Smoking Tobacco: Former Cigarettes 1.5 30 0 08/28/1990 - 08/28/2020 Passive Smoke Exposure: Past Smokeless Tobacco: Never Tobacco Cessation:Counseling Given: Not Answered Alcohol Use Standard Drinks/Week Comments Not Currently 0 (1 standard drink = 0.6 oz pur e alcohol) Education Answer Date Recorded Are you interested in more education? Not on samantha e 09/17/2022 Are you concerned about learning? Not on file 09/17/2022 No 09/17/2022 No 09/17/2022 Digital Access Answer Date Recorded No 10/15/2022 No 10/15/2022 Reliable internet access at home? Not on file 10/15/2022 Device with a working camera? Not on file Comments Unknown Sex and Gender Information Value Date Recorded Sex Assigned at Not on file Legal Sex Female 7:35 PM EST Gender Identity Not on file Sexual Orientation Not on file Last Filed Vital Signs Vital Sign Reading Time Taken Comments Blood Pressure 134/76 01/11/2025 2:01 PM EDT Pulse 101 01/11/2025 2:01 PM EDT Temperature 36.5 C (97.7 F) 04/13/2023 3:11 PM EST Respiratory Rate 20 04/18/2012 9:22 AM EST Oxygen Saturation 96% 01/11/2025 2:0 1 PM EDT Inhaled Oxygen Concentration - - Weight 113.4 kg (250 lb) 07/28/2023 3:2 3 PM EST patient stated Height 152.4 cm (5') 01/11/2025 2:01 PM EDT Body Mass Index 48.82 04/13/2023 3:11 PM EST Plan of Treatment Upcoming Encounters Date Type Department Care Team (Late st Contact Info) Description 04/16/2025 2:10 PM EST Office Visit [facility] [address] [place] [address] [place] [address] Renata Walker, PAPER BAG MACHINE OPERATOR [address] [place] [id number] 04/20/2025 9:00 AM EST Nutrition [address] [place] [address] Tanisha Gamble, HEATH [address] [place] [id number] Health Maintenance Due Date Last Done Comments Adult Td,Tdap Booster 1972 DEPRESSION SCREENING 1984 HEPATITIS C SCREENING 01/11/1990 HIV ONE-TIME SCREENING (18-65 YEARS) 01/11/1990 PNEUMOCOCCAL VACCINES (50+ years) (1 of 2 - PCV) 01/11/1991 PAP SMEAR 01/11/1993 MAMMOGRAM 2012 COLOGUARD 01/11/2017 COLONOSCOPY 01/11/2017 COLORECTAL CANCER SCREENING 01/11/2017 FIT TEST 01/11/2017 FOBT 01/11/2017 SIGMOIDOSCOPY 01/11/2017 VIRTUAL COLONOSCOPY 01/11/2017 LUNG CANCER SCREENING (LDCT Only) 01/11/2022 RSV VACCINE (1 - Risk 50-74 years 1-dose series) 01/11/2022 ZOSTER VACCINES (1 of 2) 01/11/2022 DIABETIC EYE EXAM 10/08/2022 LIPID PANEL 08/23/2023 08/22/2022 URINE MICROALBUMIN/CREATININE RATIO 08/23/2023 08/22/2022 INFLUENZA VACCINE (#1) 2024 COVID-19 VACCINE ( season) 2025 11/27/2020, 10/30/2020 BLOOD PRESSURE 07/14/2025 01/11/2025 HEMOGLOBIN A1C 07/14/2025 01/11/2025, 05/0 05/2024, 04/13/2023, Additional history exists CREATININE LEVEL 07/27/2025 07/27/2024, 03/2025, 03/11/2024, Additional history exists POTASSIUM LEVEL 07/27/2025 07/27/2024, 06/24, 02/10/2021, Additional history exists SMOKING Hx and SMOKELESS TOBACCO SCREENING 01/11/2026 01/11/2025 HEPATITIS A VACCINES Aged Out No long er eligible based on patient's age to complete this topic HIB VACCINES Aged Out No longer eligi ble based on patient's age to complete this topic MENINGOCOCCAL VACCINES (ACWY) Aged Out No longer eligible based on patient's age to complete this topic MENINGOCOCCAL VACCINES (B) Aged Out N o longer eligible based on patient's age to complete this topic Medical Devices Not on file Procedures Procedure Name Priority Date/Time Associated Diagnosis Comments POCT HEMOGLOBIN A1C Routine 01/11/2025 2 :24 PM EDT Type 2 diabetes mellitus with diabetic polyneuropathy, with long-term current use of insulin BASIC METABOLIC PANEL Routine 07/27/2024 3:24 PM EST Type 2 diabetes mellitus with diabetic polyneuropathy, with long-term current use of insulin from Last 3 Months or Most Recently Relevant to Health Maintenance Results * (ABNORMAL) POCT Hemoglobin A1c (01/11/2025 2:24 PM EDT) Hemoglobin A1c 7.1(A) 4.2 - 5.6 % [facility] Other 01/11/2025 2:24 PM EDT us Renata Walker CNP POINT OF CARE TEST ORDERABLES Final Result [facility] [address] [place] [address], [facility] * Basic metabolic panel (07/27/2024 3:24 PM EST) Blood us Renata Walker PAPER BAG MACHINE OPERATOR LAB BLOOD ORDERABLES Final Re sult [facility] [address] [place] [address] from Last 3 Months or Most Recently Relevant to Health Maintenance Insurance [facility] MEDICARE PART A & B [facility] MEDICARE REPLACEMENT [facility] MEDICARE PART A & B [facility] MEDICARE REPL[place] [address] [place] [address] PPO EPO MEDICARE PART A & [place] [address] [place] [address] PPO EPO MEDICARE PART A & B Member Subscriber Plan / Payer (Ef fective 2018-Present) Name:Janna Iglesias Member ID:[id number] Relation to Subscriber:Self Name:Janna Iglesias Subscriber ID:[id number] Payer ID:[id number] Group ID:Not on file Type:Medicare Address: [employer] [address] [place] [address] MEDICARE PART A & B Member Subscriber Plan / Payer (Ef fective 2018-Present) Name:Janna Iglesias Member ID:[id number] Relation to Subscriber:Self Name:Janna Iglesias Subscriber ID:[id number] Payer ID:[id number] Group ID:Not on file Type:Medicare Address: [employer] [address] MEDICARE REPLACEMENT [facility] MEDICARE PART A & B [facility] MEDICARE REPLACEMENT [facility] PPO EPO MEDICARE PART A & B Member Subscriber Plan / Payer (Ef fective 2018-Present) Name:Janna Iglesias Member ID:[id number] Relation to Subscriber:Self Name:Janna Iglesias Subscriber ID:[id number] Payer ID:[id number] Group ID:Not on file Type:Medicare Address: [facility] [employer] [facility] [employer] [facility] [address] [place] [address] [facility] MEDICARE REPLACEMENT [facility] PPO EPO MEDICARE PART A & [place] [address] [address] [place] [address] MEDICARE PART A & B [facility] AAR MEDICARE [place] [address] [address] [place] [address] INSURANCE Care Teams Geodetic Survey Director Relationship Specialty Start Date End Date Jovany Max DO [address] [place] [address] [email or web address] PCP - General Internal Medicine 09/20/24 Jovany Max DO [address] [place] [address] Insurance Assigned Provider 08/28/23 Additional Source Comments The information contained in this document represents components of the legal health record. It is not the complete legal health record.[facility]
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
--- OUTSIDE RECORDS SUMMARY | 2025-03-06 14:54 | XMS_ITS | Encounter Summary ---
Author Organization [facility] Address [address] [place] [address] Phone Care Team Providers Care Riveting Machine Operator Automatic Name Role Phone José AntonioJovany courtney Primary Care Provider [phone] Bigda, Jovany Cherri DO Unavailable José Antonioda, Jovany Cherri DO Unavailable Bigda, Jovany A DO Primary Care Provider [phone] Encounter Details Date Type Department Care Team (Late Contact Info) Description 03/17/2019 Telephone [facility] Internal Medicine [address] [place] [address] Jovany Max, DO [address] [facility] [place] [address] [email or web address] Social History Tobacco Use Types Packs/Day Years [...] Description 04/16/2025 2:10 PM EST Office Visit [facility] [address] [place] [address] Renata Walker, SHADE [address] [place] [address] 04/20/2025 9:00 AM EST Nutrition [facility] [address] [place] [address] Tanisha Gamble, HEATHN [address] [place] [address] documented as of this encounter Visit Diagnoses Not on filedocumented in this encounter Additional Health Concerns 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 per Infection Control as part of historical infection status reconciliation 06/10/2011 06/10/2011 08/10/19 1:22 AM EDT documented as of this encounter Care Teams Riveting Machine Operator Automatic Relationship Specialty Start Date End Date Jovany Max DO PCP - General Internal Medicine 06/17/18 09/19/24 Jovany Max DO [address] [place] [address] PCP - General Internal Medicine 09/20/24 Jovany Max DO [address] [place] [address] Insurance Assigned Provider 09/24/18 05/09/21 Jovany Max DO [address] [place] [address] Insurance Assigned Provider 08/28/23 documented as of this encounter Additional Source Comments The information contained in this document represents components of the legal health record. It is not the complete legal health record.[facility]
[2025-03-06 18:49] LABS: Alanine Aminotransferase 31 U/L (0-31); Albumin Level 4.6 g/dL (3.5-5.0); Alkaline Phosphatase 129 U/L (39-117); Anion Gap 16 (12-20); Aspartate Amino Transferase 23 U/L (5-31); Blood Urea Nitrogen 23 mg/dL (9-16); Calcium 10.5 mg/dL (8.4-10.2); Carbon Dioxide 27 mmol/L (22-29); Chloride 104 mmol/L (96-108); Cholesterol 240 mg/dL (<200); Estimated Glomerular Filt Rate > 60; HDL Cholesterol 33 mg/dL (>40); Magnesium 2.2 mg/dL (1.6-2.6); Potassium 4.6 mmol/L (3.3-5.1); Sodium 142 mmol/L (135-145); Total Protein 8.2 g/dL (6.5-8.0); Triglycerides 1057 mg/dL (<150)
[2025-03-06 19:05] LABS: Folate 19.3 ng/mL (> or = 4.0); Thyroid Stimulating Hormone 1.35 uIU/mL (0.32-4.0); Vitamin B12 260 pg/mL (200-900)
[2025-03-07 05:35] LABS: Hemoglobin A1C 182.3399 umol/L; Total Hemoglobin (HGBA1C) 3572.6505 umol/L
== END 2025-03-06 12:11 | disposition home or self-care (01) ==
LOC: HO.MANLDS 12:10
PROVIDERS: Visit Provider Internal Medicine
DX: E11.41 Type 2 diabetes mellitus with diabetic mononeuropathy (principal)
CPT/HCPCS: 36415; 80053; 80061; 82607; 82746; 83036; 83735; 84443